=== PATIENT | male | born 1945 | race Caucasian/White ===

== ENCOUNTER 2019-07-18 08:00 | Outpatient (RCR) | payer MEDICARE, OTHER, SELFPAY | END 2019-08-01 13:47 | disposition home or self-care (01) | LOC: PT.CARL 08:00 | PROVIDERS: Visit Provider Orthopaedic Surgery Orthopaedic Trauma | DX: S52.92XS Unspecified fracture of left forearm, sequela (principal); S32.599A Other specified fracture of unspecified pubis, initial encounter for closed fracture | CPT/HCPCS: 97010; 97014; 97033; 97110; 97140; 97163; 97164; G0283 ==

== ENCOUNTER → 2019-07-29 13:26 | Outpatient (CLI) | payer MEDICARE, OTHER, SELFPAY ==
--- NOTE | 2019-07-29 13:30 | MR_ITS ---
PROCEDURE: MR SHOULDER LT WO CON CLINICAL INDICATION: ACUTE PAIN OF LEFT SHOULDER Pain with limited range of motion and popping noise COMPARISON: No exams were available for comparison TECHNIQUE: Routine multiplanar multi echo sequences are performed without gadolinium enhancement. FINDINGS: There is complete tear of the supraspinatus tendon with retraction of the musculotendinous fibers. There is a tear also of the infraspinatus tendon. There are however does appear to be a few intact fibers superiorly and posteriorly. The subscapularis and teres minor tendons appear intact. There is a moderate amount of motion artifact. No obvious labral tear. There fluid in the subdeltoid and sub acromial region as well as the shoulder joint capsule itself anteriorly and posteriorly. Sub coracoid fluid is also noted. The bicipital tendon does appear in place. Hypertrophic changes are present at the acromioclavicular joint. There is bone marrow edema within the posterior aspect of the glenoid. IMPRESSION: 1. Complete tear of the supraspinatus tendon with retraction of the musculotendinous fibers. 2. Partial tear of the infraspinatus tendon. 3. Moderate size shoulder joint effusion with fluid in the subacromial and subdeltoid region and subcoracoid area. 4. Acromioclavicular arthropathy 5. Bone marrow edema in the posterior aspect of the glenoid Dictated by: Brenden Herbert MD 07/31/2019 10:36 Electronically signed by Brenden Herbert MD in [place] 07/31/2019 10:36
== END ==
PROVIDERS: PCP Internal Medicine Adolescent Medicine; Visit Provider Internal Medicine Adolescent Medicine
DX: M25.512 Pain in left shoulder (principal)
CPT/HCPCS: 73221

== ENCOUNTER → 2021-02-15 09:15 | Outpatient (CLI) | payer MEDICARE, OTHER, SELFPAY ==
--- NOTE | 2021-02-15 | CA_ITS ---
APPROVED REPORT Exam: Exercise Treadmill Technologist: Tiffanie Dan, Ht: 6 ft 0 in Wt: 250 lbs BSA: 2.34 m2 HR: 54 bpm BP: 121/52 mmHg Rhythm: Sinus rhythm Medical History Medical History: HTN, Hyperlipidemia Medications: Hydrochlorothiazide,,,,, TAMSULOSIN,,,,, ProSCAR,,,,, Omepazole,,,,, AcYCLOr,,,,, Cardiac Risk Factors: Hyperlipidemia, HTN, FHX of CAD Stress Test Details Test: Raphael HR Resting HR: 58 bpm Max Heart Rate (APMHR): 145.926006 bpm Max HR Achieved: 127 bpm Target HR (85% APMHR): 123.226659 bpm % of APMHR: 87.59 Recovery HR: 82 bpm BP Resting BP: 119/59 mmHg Max BP: 159/90 mmHg Recovery BP: 132.0/60.0 mmHg ECG Resting ECG: Sinus rhythm Clinical Exercise duration: 06:00 min Highest Stage Achieved: Exercise capacity: 7.0 METs Stress ECG Conclusion Pt exercised total of 6:00. METS 7.0. Stopped due to SOB. No chest pain, SOB during peak exercise, resolved in recovery. No ectopy noted. Greater than 1.5mm ST depression. GXT only. Appropriate BP response. Test Summary RECOVERY 04:00 0.0 0.0 76 . . . . REST . . . . . . . Sitting REST . . . . . . . Standing REST 09:09 0.0 0.0 58 . 119/ 59 . . Stage 1 01:00 10.0 1.7 88 . . . . Stage 1 02:00 10.0 1.7 99 . . . . Stage 1 03:00 10.0 1.7 101 . 142/ 61 . . Stage 2 01:00 12.0 2.5 112 . . . . Stage 2 02:00 12.0 2.5 122 . . . . Stage 2 03:00 12.0 2.5 124 . 159/ 90 . Stop exercise at 06:00 RECOVERY 01:00 0.0 0.0 101 . . . . RECOVERY 02:00 0.0 0.0 70 . . . . RECOVERY 03:00 0.0 0.0 76 . . . . RECOVERY 04:00 0.0 0.0 76 . . . . RECOVERY 05:00 0.0 0.0 70 . 118/ 72 . . RECOVERY 05:15 0.0 0.0 65 . 118/ 72 . . Electronically signed by : uLis Saenz, 02/17/2021 21:04:23
== END ==
PROVIDERS: PCP Internal Medicine Adolescent Medicine; Visit Provider Internal Medicine Adolescent Medicine
DX: R06.09 Other forms of dyspnea (principal)
CPT/HCPCS: 93017

== ENCOUNTER → 2021-02-18 10:43 | Outpatient (CLI) | payer MEDICARE, OTHER, SELFPAY | PROVIDERS: Visit Provider Urology | DX: R06.00 Dyspnea, unspecified (principal); I10 Essential (primary) hypertension ==

== ENCOUNTER → 2021-02-19 09:54 | Outpatient (CLI) | payer MEDICARE, OTHER, SELFPAY ==
[2021-02-19 10:34] LABS: Basophils % 0.3 % (0.1-2.0); Eosinophils # 0.1 K/mm3 (0.0-0.4); Eosinophils % 1.9 % (0.1-12.0); Hematocrit 43.5 % (42.0-52.0); Hemoglobin 14.9 g/dL (14.1-18.0); Lymphocytes # 1.8 K/mm3 (0.7-4.5); Lymphocytes % 25.5 % (10-50); Mean Corpuscular HGB Conc 34.3 g/dL (31.8-35.4); Mean Corpuscular Hemoglobin 31.2 pg (27.0-31.2); Mean Platelet Volume 7.8 fl (7.4-10.4); Monocytes # 0.4 K/mm3 (0.1-1.0); Monocytes % 6.2 % (1.7-9.3); Neutrophils # 4.7 K/mm3 (1.8-7.8); Neutrophils % 66.1 % (37.0-80.0); Platelet Count 194 K/mm3 (142-424); Red Blood Count 4.78 M/mm3 (4.60-6.20); Red Cell Distribution Width 13.4 % (11.5-17.5)
[2021-02-19 10:54] LABS: Chloride 100 mmol/L (98-107); Sodium 139 mmol/L (136-145)
[2021-02-19 10:57] LABS: Blood Urea Nitrogen 21 mg/dl (9-20); Calcium 9.6 mg/dl (8.4-10.2); Carbon Dioxide 31 mmol/L (22.0-30.0); Estimated Glomerular Filt Rate 73 ml/min (>60); GFR (African American) 88 ML/MIN (>60); Glucose 104 mg/dl (74-100)
== END ==
PROVIDERS: Visit Provider Urology
DX: Z01.812 Encounter for preprocedural laboratory examination; Z20.822 Contact with and (suspected) exposure to COVID-19; R06.00 Dyspnea, unspecified; R00.1 Bradycardia, unspecified; I10 Essential (primary) hypertension; E78.5 Hyperlipidemia, unspecified; I63.9 Cerebral infarction, unspecified; R94.39 Abnormal result of other cardiovascular function study
CPT/HCPCS: 36415; 80048; 85025; U0003

== ENCOUNTER 2021-02-21 08:55 | Day surgery (SDC) | payer MEDICARE, OTHER, SELFPAY ==
[2021-02-21] VITALS (10 sets, daily range): BP systolic 94–158; BP diastolic 49–87; PULSE 55–71; RESP 2–20; TEMP 36.6; O2SAT 93–100; BMI 33.2
--- NOTE | 2021-02-21 07:08 | IR_ITS ---
APPROVED REPORT Patient Location: Outpatient Production Control Clerk: SUSIE Lobo RT (R) PROCEDURES Left heart catheterization Left ventriculogram Selective coronary angiogram INDICATION Angina pectoris, Abnormal stress test Informed consent was obtained prior to the procedure. COMPLICATIONS NONE Estimated Blood Loss: LESS THAN 10 ML TECHNIQUE One percent lidocaine used to anesthetize the right anterior aspect of the wrist. The right radial artery was accessed via the Seldinger technique. A 6 [place] sheath was placed in the right radial artery. 2.5 mg of verapamil, 800 mcg of nitroglycerin, 1mg Lidocaine and 5000 U Heparin were given through the arterial sheath. The trap catheter was also used to perform left heart catheterization, left ventriculogram and selective coronary angiogram. At the end of the procedure the sheath was removed good hemostasis was achieved using Traclet band, patient was transferred to the postop holding area in stable condition. ANGIOGRAPHIC RESULTS The left main artery Normal The left anterior descending artery Has proximal and mid vessel diffuse 10% luminal irregularities The circumflex artery Nondominant and has diffuse 10% luminal irregularities The right coronary artery Large dominant with diffuse 10% luminal irregularities The DAVIDSON ventriculogram reveals Normal 65% The left ventricular end-diastolic pressure 10 mmHg IMPRESSION Mild diffuse luminal irregularities as described above all of which are nonflow limiting Normal ejection fraction Normal left ventricular end-diastolic pressure PLAN 1. Continue medical management Electronically signed by : Shashi Zelaya MD 02/25/2021 14:53:32
--- NOTE | 2021-02-21 08:59 | CA_ITS ---
APPROVED REPORT EXAM: Comprehensive 2D, Doppler, and color-flow Echocardiogram Tape Machine Tailer: Veronica Zarco, RCS, RVS Ht: 6 ft 2 in Wt: 259lbs BSA: 2.43 BP: 155/76 mmHg Indications: Abn Stress, SOB, ABN EKG Echo Enhancing Agent Comments: Poor acoustic windows wheatley to large chest circumference 2D Dimensions IVSd 1.04 cm LVEF (Visual) 65.70 % PWd 1.27 cm LA Volume 52.60 mL LVDd 4.84 cm LA Volume Index 21.396279 mL/m2 (M/F) 16-34 LVDs 3.09 cm Left Atrium 3.21 cm LVOT 2.07 cm (M/F) 1.5-2.5 M-Mode Dimensions LA Diam 3.91 cm (1.9-4.0) LVDd 5.01 cm (3.5-5.7) Ao Diam 3.66 cm (2.0-3.7) LVDs 3.67 cm (3.5-5.7) EF (Teich) 52.00% EPSs 0.57 cm FS 26.70% EDV (Teich) 118.80 mL TAPSE 2.32 (<1.7) ESV (Teich) 57.00 mL LV Diastology E Decel Time 467.00 (160-240 msec) E/A Ratio 0.82 MED E' 6.50 (< 7 cm/sec) MED A' 12.10 cm/s E'/MED E' Ratio 8.69 (>14) LAT E' 7.60 (<10 cm/sec) LAT A' 11.60 cm/s E/LAT E' Ratio 7.43 (>14) Aortic Valve LVOT Max 125.00 (70-110 cm/s) LVOT VTI 25.35 cm AO Peak GR. 8.90 mmHg Mitral Valve MV A Velocity 69.00 (40-130 cm/s) E/A Ratio 0.82 MV Decel. Time 467.00 (160-240 ms) Pulmonary Valve PV Peak Velocity 121.00 (50-150 cm/s) Tricuspid Valve TR P. Velocity 193.00 cm/s RAP Estimate 10.00 mmHg RVSP 25.00 mmHg Left Ventricle Left atrium is mildly enlarged, left ventricle is normal size, mild concentric left ventricular hypertrophy, visually estimated ejection fraction 55% with no regional wall motion abnormality, grade 1 diastolic dysfunction seen without tissue Doppler evidence of raise left atrial pressure. Right Ventricle Right atrium and right ventricle mildly enlarged with normal contractility. Aortic Valve Aortic valve is minimally thickened and fibrosed, there is no aortic stenosis or aortic insufficiency. Mitral Valve Mitral valve grossly normal, there is trace mitral regurgitation. Tricuspid Valve Tricuspid valve grossly normal, there is trace tricuspid regurgitation. Tricuspid regurgitation jet velocity is inadequate for calculation of the right ventricular systolic pressure. Pulmonic Valve Pulmonic valve is poorly visualized. Great Vessels Aortic root is normal size. Inferior vena cava is normal size with normal inspiratory collapse. Pericardium No significant pericardial effusion noted. Conclusion 1. Mild biatrial abdomen, normal left ventricular size, mild concentric left ventricular hypertrophy, visually estimated ejection fraction 55% with no regional wall motion abnormality, grade 1 diastolic dysfunction seen without tissue Doppler evidence of raise left atrial pressure. 2. Mildly enlarged right ventricle with normal contractility. 3. Trace mitral and tricuspid regurgitation. 4. No significant pericardial effusion noted. Electronically signed by : Dandre Jaimes MD 02/22/2021 13:32:57
== END 2021-02-21 13:41 | disposition home or self-care (01) ==
LOC: CATHLAB 08:58
PROVIDERS: PCP Internal Medicine Adolescent Medicine; Visit Provider Internal Medicine
DX: E78.5 Hyperlipidemia, unspecified (principal); I10 Essential (primary) hypertension; R94.39 Abnormal result of other cardiovascular function study; Z79.899 Other long term (current) drug therapy; I20.8 Other forms of angina pectoris
CPT/HCPCS: 93306; 93458; 99152; C1725; C1769; J1644; Q9967

== ENCOUNTER → 2021-03-04 14:17 | Outpatient (CLI) | payer MEDICARE, OTHER, SELFPAY ==
--- NOTE | 2021-03-04 14:21 | XR_ITS ---
PROCEDURE: XR CHEST 2V CLINICAL HISTORY: dyspnea COMPARISON: CR CXR CHEST(2 VIEWS-NOT PORTABLE) from 08/03/2014 CR CXR CHEST(2 VIEWS-NOT PORTABLE) from 03/27/2015 FINDINGS: The cardiomediastinal silhouette and pulmonary vascularity are within normal limits. The lungs are clear without infiltrates, suspicious nodules, or pleural effusions. No acute bony abnormalities. IMPRESSION: No acute findings. Dictated by: Brenden Herbert MD 03/04/2021 15:58 Brenden Herbert MD in [place] 03/04/2021 15:58
== END ==
PROVIDERS: PCP Internal Medicine Adolescent Medicine; Visit Provider Nurse Practitioner Family
DX: R06.00 Dyspnea, unspecified (principal)
CPT/HCPCS: 71046

== ENCOUNTER → 2021-04-26 10:12 | Outpatient (CLI) | payer MEDICARE, OTHER, SELFPAY ==
[2021-04-26 13:49] LABS: Basophils % 0.7 % (0.1-2.0); Eosinophils # 0.2 K/mm3 (0.0-0.4); Hematocrit 44.2 % (42.0-52.0); Lymphocytes # 1.6 K/mm3 (0.7-4.5); Lymphocytes % 31.7 % (10-50); Mean Corpuscular HGB Conc 33.9 g/dL (31.8-35.4); Mean Corpuscular Hemoglobin 31.6 pg (27.0-31.2); Mean Corpuscular Volume 93.3 fl (80-94); Mean Platelet Volume 9.1 fl (7.4-10.4); Monocytes # 0.6 K/mm3 (0.1-1.0); Monocytes % 12.5 % (1.7-9.3); Neutrophils # 2.6 K/mm3 (1.8-7.8); Neutrophils % 52.1 % (37.0-80.0); Platelet Count 186 K/mm3 (142-424); Red Blood Count 4.74 M/mm3 (4.60-6.20); Red Cell Distribution Width 13.1 % (11.5-17.5)
[2021-04-26 13:53] LABS: Alanine Aminotransferase 85 U/L (12-78); Albumin Level 3.9 g/dl (3.5-5.0); Albumin/Globulin Ratio 1.3 (1.1-1.8); Alkaline Phosphatase 64 U/L (38-126); Anion Gap 12.4 mEq/L (5-15); Aspartate Amino Transferase 79 U/L (17-59); Bilirubin,Total 0.8 mg/dl (0.2-1.3); Blood Urea Nitrogen 15 mg/dl (9-20); Carbon Dioxide 26 mmol/L (22.0-30.0); Chloride 104 mmol/L (98-107); Estimated Glomerular Filt Rate 94 ml/min (>60); GFR (African American) 114 ML/MIN (>60); Glucose 105 mg/dl (74-100); Potassium 4.4 mmoL/L (3.5-5.1); Sodium 138 mmol/L (136-145); Total Protein,Serum 6.9 g/dl (6.3-8.2)
[2021-04-26 14:23] LABS: Thyroid Stimulating Hormone 2.82 uIU/mL (0.465-4.68)
== END ==
PROVIDERS: Visit Provider Internal Medicine Adolescent Medicine
DX: I10 Essential (primary) hypertension (principal)
CPT/HCPCS: 36415; 80053; 84443; 85025

== ENCOUNTER → 2021-05-08 12:44 | Outpatient (CLI) | payer MEDICARE, OTHER, SELFPAY ==
[2021-05-08 13:30] VITALS: PULSE 61; PULSE 64
== END ==
PROVIDERS: PCP Internal Medicine Adolescent Medicine; Visit Provider Internal Medicine Adolescent Medicine
DX: R06.09 Other forms of dyspnea (principal)
CPT/HCPCS: 94060; 94640; 94727; 94729

== ENCOUNTER → 2021-08-06 09:06 | Outpatient (CLI) | payer MEDICARE, OTHER, SELFPAY ==
--- NOTE | 2021-08-06 09:24 | XR_ITS ---
FINAL REPORT CLINICAL HISTORY: left hip pain FINDINGS: 2 views of the left hip with an AP pelvis were obtained. There is no acute fracture or dislocation. There are mild degenerative changes. There are no soft tissue abnormalities. IMPRESSION: Mild degenerative change. Reviewed, Interpreted and Dictated by David Mccartney III, MD Transcribed by Alexandre Ruiz Authenticated by David Mccartney III, MD on 08/06/2021 11:29:[address] [facility]
--- NOTE | 2021-08-06 09:24 | XR_ITS ---
FINAL REPORT CLINICAL HISTORY: right hip pain , pelvis is under left hip FINDINGS: 2 views of the right hip were obtained. There is no acute fracture or dislocation. There are mild degenerative changes. There are no soft tissue abnormalities. IMPRESSION: Mild degenerative change. Reviewed, Interpreted and Dictated by David Mccartney III, MD Transcribed by Alexandre Ruiz Authenticated by David Mccartney III, MD on 08/06/2021 11:30:[address] [facility]
== END ==
PROVIDERS: PCP Internal Medicine Adolescent Medicine; Visit Provider Internal Medicine Adolescent Medicine
DX: M54.50 Low back pain, unspecified (principal); M25.552 Pain in left hip; M25.551 Pain in right hip; G89.29 Other chronic pain
CPT/HCPCS: 73502

== ENCOUNTER → 2021-08-16 10:31 | Outpatient (CLI) | payer MEDICARE, OTHER, SELFPAY ==
--- NOTE | 2021-08-16 10:45 | MR_ITS ---
FINAL REPORT CLINICAL HISTORY: LOW BACK PAIN. hx lumbar surgery 2016. when standing lbp x2-3yrs. no recent injury or trauma. 23ml prohance given. FINDINGS: Multiplanar MR imaging of the lumbar spine was performed without contrast. On the sagittal T2-weighted images, there is abnormal decreased signal throughout the lumbar discs. There is moderate loss of disc height at all levels. There is magnetic artifact of the posterior elements at L4-L5. There is heterogeneous marrow signal probably related to red marrow conversion. The vertebrae are of normal height. The vertebral alignment is normal. No abnormal contrast enhancement. T12-L1: There is no significant canal stenosis or neural foraminal narrowing. L1-2: There is a moderate diffuse disc bulge with a right posterolateral disc protrusion. There is moderate right and mild left neural foraminal narrowing. L2-3: There is a [id number] diffuse disc bulge. There is [id number]-mqiwgylm bilateral neural foraminal narrowing. L3-4: There is a moderate disc bulge with a focal left paracentral disc protrusion. There is moderate compromise on the left lateral recess. There is moderate to high-grade left neural foraminal narrowing. L4-5: There is a moderate diffuse disc bulge with facet hypertrophy. There is moderate to high-grade bilateral neural foraminal narrowing. L5-S1: There is a diffuse disc bulge with endplate hypertrophy eccentric to the right. There is high-grade right neural foraminal narrowing. IMPRESSION: Neural foraminal compromise most evident on the left at L3-L4 and on the right at L5-S1. Please correlate with any radicular symptoms. Reviewed, Interpreted and Dictated by Frederick Yoder MD Transcribed by Alexandre Ruiz Authenticated by Frederick Yoder MD on 08/16/2021 01:19:37 PM [facility]
[2021-08-16 10:53] LABS: Blood Urea Nitrogen 24 mg/dl (9-20); Estimated Glomerular Filt Rate 94 ml/min (>60); GFR (African American) 114 ML/MIN (>60)
== END ==
PROVIDERS: PCP Internal Medicine Adolescent Medicine; Visit Provider Internal Medicine Adolescent Medicine
DX: M54.50 Low back pain, unspecified (principal)
CPT/HCPCS: 36415; 72158; 76376; 82565; 84520; A9576

== ENCOUNTER 2021-08-21 09:00 | Outpatient (RCR) | payer MEDICARE, OTHER, SELFPAY ==
--- NOTE | 2021-07-10 10:26 | HMH.PTOPEV ---
PT Outpatient Evaluation Rehab PT Outpatient Evaluation Start: 07/10/21 09:00 Freq: Status: Active Protocol: Document 07/10/21 09:00 JASPAL (Rec: 07/10/21 10:26 PDESEROUX [id number]) Electronically Signed By Tyler Kohler, PT 07/10/21 09:00 Outpatient Therapy Subjective History Subjective History Pt. is a 75 year old male who presents to Outpatient Physical Therapy w/ c/o subacute on chronic and activity dependent B/L lumbar and hip(R>L) P! of traumatic onset 1.5 months ago. Pt. reports feeling a pop in his RLE buttock 1.5 months ago, and has been fearful to put full weightbearing through his RLE ever since secondary to fear of giving out. However, pt. reports c/o lumbar pain is chronic. Pt. reports prolonged standing exacerbates his symptoms, but states having symptom complete relief after 30 seconds of sitting. Pt. reports having a history of LLE Sciatica, but states current symptoms will refer just to his buttock(R>L). Recent diagnostic imaging negative per pt. report. Pt. denies having injections for current pathology. Pt. reports he's been seeing a Chiropractor for current symptoms that include pelvic realignment and icing that doesn't seem to help much. Current medications include Prilosec and Tamsulosin. PMH includes S/P Laminectomy L4/L5 , Enlarged Prostate, Borderline Hypertension, Hyperlipidemia, Cholecystectomy, S/P LLE knee ATS, and S/P LUE humerus and ulna surgical reconstruction. Chief Complaint Pain,Stiff,Gives out/Unstable, Paresthesia,Weakness Symptom Type Ache,Dull,Shooting Symptoms Relieved By Rest/Positioning Symptoms Aggravated By
== END 2021-09-18 11:31 | disposition home or self-care (01) ==
LOC: PT.CARL 09:00
PROVIDERS: PCP Internal Medicine Adolescent Medicine; Visit Provider Internal Medicine Adolescent Medicine
DX: M62.9 Disorder of muscle, unspecified (principal)
CPT/HCPCS: 97010; 97014; 97110; 97140; 97163; 97164; G0283

== ENCOUNTER → 2021-12-25 21:21 | Outpatient (CLI) | payer MEDICARE, OTHER, SELFPAY ==
[2021-12-25 23:52] LABS: Influenza A, PCR Not Detected (NotDetected); Influenza B, PCR Not Detected (NotDetected)
[2021-12-26 00:12] LABS: Coronavirus 19, PCR Detected (NotDetected)
== END ==
PROVIDERS: PCP Internal Medicine Adolescent Medicine; Visit Provider Emergency Medicine
DX: Z20.822 Contact with and (suspected) exposure to COVID-19 (principal); U07.1 COVID-19
CPT/HCPCS: C9803; U0003; U0005

== ENCOUNTER 2021-12-26 10:07 | Emergency (ER) | payer MEDICARE, OTHER, SELFPAY ==
--- NOTE | 2021-12-26 10:09 | ECG_ITS ---
APPROVED REPORT Exam: Resting ECG HR:74 bpm ECG Measurements Heart Rate 74 AXES NH 215 P 57 QRSd 89 QRS 59 QT 355 T 60 QTc 383 Conclusion SINUS RHYTHM WITH FIRST DEGREE AV BLOCK NONSPECIFIC ST & T-WAVE ABNORMALITY ABNORMAL ECG UNCONFIRMED REPORT Electronically signed by : Luis Saenz MD 12/26/2021 21:17:20
[2021-12-26 10:15] VITALS: BP 143/67; PULSE 77; RESP 20; TEMP 36.8; O2SAT 96; BMI 32.1
--- NOTE | 2021-12-26 10:15 | XR_ITS ---
FINAL REPORT CLINICAL HISTORY: chest pain, covid + today COMPARISON: March 04, 2021 FINDINGS: The heart size is normal. The mediastinum is normal. There is no focal infiltrate or edema. There are no pleural effusions. There is no pneumothorax. There is no osseous abnormality. IMPRESSION: No acute cardiopulmonary process Reviewed, Interpreted and Dictated by David Mccartney III, MD Transcribed by Alexandre Ruiz Authenticated and . [facility]
--- NOTE | 2021-12-26 10:21 | PC.NURSE ---
LULU UGARTE at
--- NOTE | 2021-12-26 10:28 | PC.NURSE ---
Notified radiology of portable chest xray
--- NOTE | 2021-12-26 10:30 | HMH.EDGENADL ---
ED Disposition Clinical Impression: Chest pain Disposition: Home, Self-Care Condition on Discharge: Fair Prescriptions: Benzonatate [Benzonatate 100mg cap] 100 mg PO TID PRN 5 Days #15 cap PRN Reason: Cough Transmission Status: Pending to [facility] Referrals: Karlos Toussaint MD [Primary Care Provider] - - Critical Care Critical Care Time: No Attestation: On 12/26/21, the high probability of a clinically significant, sudden or life threatening deterioration of the following system(s) required my full and direct attention, intervention and personal management. The time I documented below is in addition to time spent performing reported procedures but includes the following listed in this critical care notation. Medical Decision Making - [place] Inquiry Pt receiving controlled substance: No Vital Signs: 12/26/21 10:15 12/26/21 10:37 12/26/21 10:47 Temperature 98.2 F Temperature Source Oral Pulse Rate 70 70 Pulse Rate [Left Radial] 77 Respiratory Rate 20 23 Blood Pressure 149/77 H 148/69 H Blood Pressure [Right Arm] 143/67 H Blood Pressure Mean 90 81 Blood Pressure Mean [Right Arm] 92 02 Sat by Pulse Oximetry 96 96 95 Oxygen Delivery Method Room Air 12/26/21 10:57 Temperature Temperature Source Pulse Rate 69 Pulse Rate [Left Radial] Respiratory Rate Blood Pressure 148/71 H Blood Pressure [Right Arm] Blood Pressure Mean 89 Blood Pressure Mean [Right Arm] 02 Sat by Pulse Oximetry 95 Oxygen Delivery Method - Lab Data Lab Results 12/26/21 10:30: WBC 7.4, RBC 4.22 L, Hgb 13.4 L, Hct 39.9 L, MCV 94.6 H, MCH 31.8 H, MCHC 33.6, RDW 13.7, Plt Count 180, MPV 8.1, Neut % (Auto) 82.3 H, Lymph % (Auto) 7.5 L, Bath % (Auto) 8.5, Eos % (Auto) 1.2, Baso % (Auto) 0.6, Neut # (Auto) 6.1, Lymph # (Auto) 0.6 L, Bath # (Auto) 0.6, Eos # (Auto) 0.1, Baso # (Auto) 0.0 12/26/21 10:30: Sodium 138, Potassium 3.8, Chloride 104, Carbon Dioxide 25, Anion Gap 12.8, BUN 19, Creatinine 0.80, Estimated Creat Clear 101, Estimated GFR 94, Est GFR ( Amer) 114, Glucose 124 H, Calcium 8.8, Total Bilirubin 0.4, AST 41, ALT 42, Alkaline Phosphatase 62, Troponin I < 0.01, Total Protein 6.9, Albumin 3.9, Globulin 3.0, Albumin/Globulin Ratio 1.3 12/26/21 10:30: D-Dimer 0.66 H Result diagrams: 12/26/21 10:30 12/26/21 10:30 Orders (Tests/Meds): ED MEDICATIONS Discontinued Medications Generic Name Dose Route Start Last Admin Trade Name Freq PRN Reason Stop Dose Admin Acetaminophen 1,000 mg 12/26/21 10:36 12/26/21 11:08 Acetaminophen 500mg Tab PO 12/26/21 10:37 1,000 mg ONCE ONE Administration Aspirin 325 mg 12/26/21 10:36 12/26/21 11:08 Aspirin 325mg Tablet PO 12/26/21 10:37 243 mg ONCE ONE Administration ORDERS Category Date Time Status Troponin I Q3H Lab 12/26/21 13:30 Ordered Troponin I Q3H Lab 12/26/21 16:30 Ordered Medical Decision Narrative: DDX includes but not limited pneumonia, pneumothorax, ACS, PE. HDS, NAD, on room air, appears comfortable sitting in bed. Afebrile. Wells PE score 3. Will obtain labs and imaging including cbc, cmp, troponin, d dimer, cxr. pt given tylenol and aspirin. ekg show nsr with first degree block, no acute stemi. labs not acutely actionable. d dimer 0.66 but age adjusted levels vte less likely acutely. cxr without acute findings. on reassessment, remains hds, on room air, nad. given rx for benzonatate prn cough. given strict ed return precautions. advised to f/u with pcp within 1 week. General Adult HPI - General Chief complaint: Shortness of Breath/Dyspnea Stated complaint: CP Time Seen by Provider: 12/26/21 10:15 Mode of Arrival: Ambulatory Limitations: No Limitations Description of Symptoms (Recalled from ER Triage Doc. by RN): pt to ed c/o chest discomfort, shortness of breath and a non-productive cough. pt tested covid+ yesterday. pt states he was being seen in his pcp office and was sent to ed for evalua
[2021-12-26 10:37] VITALS: BP 149/77; PULSE 70; RESP 23; O2SAT 96
[2021-12-26 10:41] LABS: Basophils % 0.6 % (0.1-2.0); Eosinophils # 0.1 K/mm3 (0.0-0.4); Eosinophils % 1.2 % (0.1-12.0); Hematocrit 39.9 % (42.0-52.0); Hemoglobin 13.4 g/dL (14.1-18.0); Lymphocytes # 0.6 K/mm3 (0.7-4.5); Lymphocytes % 7.5 % (10-50); Mean Corpuscular HGB Conc 33.6 g/dL (31.8-35.4); Mean Corpuscular Hemoglobin 31.8 pg (27.0-31.2); Mean Corpuscular Volume 94.6 fl (80-94); Mean Platelet Volume 8.1 fl (7.4-10.4); Monocytes # 0.6 K/mm3 (0.1-1.0); Monocytes % 8.5 % (1.7-9.3); Neutrophils # 6.1 K/mm3 (1.8-7.8); Neutrophils % 82.3 % (37.0-80.0); Platelet Count 180 K/mm3 (142-424); Red Blood Count 4.22 M/mm3 (4.60-6.20); Red Cell Distribution Width 13.7 % (11.5-17.5); White Blood Count 7.4 K/mm3 (4.8-10.8)
[2021-12-26 10:45] LABS: Alanine Aminotransferase 42 U/L (12-78); Albumin Level 3.9 g/dl (3.5-5.0); Albumin/Globulin Ratio 1.3 (1.1-1.8); Alkaline Phosphatase 62 U/L (38-126); Anion Gap 12.8 mEq/L (5-15); Aspartate Amino Transferase 41 U/L (17-59); Bilirubin,Total 0.4 mg/dl (0.2-1.3); Blood Urea Nitrogen 19 mg/dl (9-20); Calcium 8.8 mg/dl (8.4-10.2); Carbon Dioxide 25 mmol/L (22.0-30.0); Chloride 104 mmol/L (98-107); Creatinine Clearance Estimated 101 mL/min (50-200); Estimated Glomerular Filt Rate 94 ml/min (>60); GFR (African American) 114 ML/MIN (>60); Glucose 124 mg/dl (74-100); Potassium 3.8 mmoL/L (3.5-5.1); Sodium 138 mmol/L (136-145); Total Protein,Serum 6.9 g/dl (6.3-8.2)
[2021-12-26 10:47] VITALS: BP 148/69; PULSE 70; O2SAT 95
[2021-12-26 10:50] LABS: D-Dimer 0.66 ug/mL (0.0-0.5)
[2021-12-26 10:57] VITALS: BP 148/71; PULSE 69; O2SAT 95
--- NOTE | 2021-12-26 11:06 | PC.NURSE ---
DAO Eason at BS
[2021-12-26 11:09] LABS: Troponin I < 0.01 ng/ml (0.00-0.034)
--- NOTE | 2021-12-26 11:43 | PC.NURSE ---
Dr. Cole at speaking with patient regarding POC
[2021-12-26 11:59] VITALS: BP 140/70; PULSE 70; RESP 18; TEMP 36.8; O2SAT 96
== END 2021-12-26 12:00 | disposition home or self-care (01) ==
PROVIDERS: Emergency Provider Student in an Organized Health Care Education/Training Program; PCP Internal Medicine Adolescent Medicine
DX: R07.2 Precordial pain (principal); R94.31 Abnormal electrocardiogram [ECG] [EKG]; R06.02 Shortness of breath; R00.1 Bradycardia, unspecified; I10 Essential (primary) hypertension; I25.10 Atherosclerotic heart disease of native coronary artery without angina pectoris; I44.0 Atrioventricular block, first degree; K21.9 Gastro-esophageal reflux disease without esophagitis; E78.5 Hyperlipidemia, unspecified; Z80.9 Family history of malignant neoplasm, unspecified; Z79.82 Long term (current) use of aspirin; Z79.899 Other long term (current) drug therapy
CPT/HCPCS: 71045; 80053; 84484; 85025; 85378; 93005; 99284

== ENCOUNTER → 2022-01-02 12:36 | Outpatient (CLI) | payer MEDICARE, OTHER, SELFPAY ==
[2022-01-02 13:19] LABS: Basophils % 0.6 % (0.1-2.0); Eosinophils # 0.2 K/mm3 (0.0-0.4); Eosinophils % 2.7 % (0.1-12.0); Hematocrit 41.6 % (42.0-52.0); Lymphocytes # 1.3 K/mm3 (0.7-4.5); Lymphocytes % 18.2 % (10-50); Mean Corpuscular HGB Conc 33.6 g/dL (31.8-35.4); Mean Corpuscular Hemoglobin 31.3 pg (27.0-31.2); Mean Corpuscular Volume 93.2 fl (80-94); Mean Platelet Volume 8.4 fl (7.4-10.4); Monocytes # 0.6 K/mm3 (0.1-1.0); Monocytes % 8.7 % (1.7-9.3); Neutrophils # 5.1 K/mm3 (1.8-7.8); Neutrophils % 69.8 % (37.0-80.0); Platelet Count 249 K/mm3 (142-424); Red Blood Count 4.47 M/mm3 (4.60-6.20); Red Cell Distribution Width 13.2 % (11.5-17.5); White Blood Count 7.3 K/mm3 (4.8-10.8)
[2022-01-02 13:44] LABS: Chloride 103 mmol/L (98-107); Potassium 4.4 mmoL/L (3.5-5.1); Sodium 135 mmol/L (136-145)
[2022-01-02 13:46] LABS: Blood Urea Nitrogen 20 mg/dl (9-20); Estimated Glomerular Filt Rate 82 ml/min (>60); GFR (African American) 99 ML/MIN (>60)
[2022-01-02 13:47] LABS: Alanine Aminotransferase 94 U/L (12-78); Albumin Level 4.1 g/dl (3.5-5.0); Albumin/Globulin Ratio 1.5 (1.1-1.8); Alkaline Phosphatase 61 U/L (38-126); Anion Gap 9.4 mEq/L (5-15); Aspartate Amino Transferase 70 U/L (17-59); Bilirubin,Total 0.7 mg/dl (0.2-1.3); Calcium 9.2 mg/dl (8.4-10.2); Carbon Dioxide 27 mmol/L (22.0-30.0); Globulin 2.7 g/dL (1.3-3.2); Glucose 116 mg/dl (74-100); Magnesium 1.8 mg/dl (1.6-2.3); Total Protein,Serum 6.8 g/dl (6.3-8.2)
== END ==
PROVIDERS: PCP Internal Medicine Adolescent Medicine; Visit Provider Internal Medicine Adolescent Medicine
DX: R53.1 Weakness (principal)
CPT/HCPCS: 36415; 80053; 83735; 85025

== ENCOUNTER → 2022-01-28 13:45 | Outpatient (CLI) | payer MEDICARE, OTHER, SELFPAY ==
--- NOTE | 2022-01-28 13:52 | CT_ITS ---
FINAL REPORT TECHNIQUE: After the administration of intravenous contrast, axial images through the chest were performed by computed tomography.This study was performed with techniques to keep radiation doses as low as reasonably achievable, (ALARA). Individualized dose reduction techniques using automated exposure control or adjustment of mA and/or kV according to the patient''s size were employed. CLINICAL HISTORY: DYSPNEA,POST COVID 05 january 2022 FINDINGS: The mediastinal vasculature is adequately opacified. There is densely calcified right paratracheal lymph nodes. The heart size is normal. There is no pericardial or pleural effusion. Limited images of the upper abdomen are unremarkable. There is evidence of old granulomatous disease. No suspicious infiltrate or nodule identified. IMPRESSION: No acute process. Reviewed, Interpreted and Dictated by Frederick Yoder MD Transcribed by Ansley Duran Authenticated and [facility]
== END ==
PROVIDERS: PCP Internal Medicine Adolescent Medicine; Visit Provider Internal Medicine Adolescent Medicine
DX: R06.09 Other forms of dyspnea (principal); U09.9 Post COVID-19 condition, unspecified
CPT/HCPCS: 71260; Q9967

== ENCOUNTER → 2022-02-27 15:23 | Outpatient (CLI) | payer MEDICARE, OTHER, SELFPAY ==
[2022-02-27 16:20] LABS: Basophils % 0.6 % (0.1-2.0); Eosinophils # 0.3 K/mm3 (0.0-0.4); Eosinophils % 3.8 % (0.1-12.0); Hematocrit 42.6 % (42.0-52.0); Hemoglobin 13.3 g/dL (14.1-18.0); Lymphocytes # 1.5 K/mm3 (0.7-4.5); Lymphocytes % 21.7 % (10-50); Mean Corpuscular HGB Conc 31.3 g/dL (31.8-35.4); Mean Corpuscular Hemoglobin 31.3 pg (27.0-31.2); Mean Platelet Volume 9.2 fl (7.4-10.4); Monocytes # 0.7 K/mm3 (0.1-1.0); Monocytes % 9.2 % (1.7-9.3); Neutrophils # 4.6 K/mm3 (1.8-7.8); Neutrophils % 64.7 % (37.0-80.0); Platelet Count 215 K/mm3 (142-424); Red Blood Count 4.26 M/mm3 (4.60-6.20); Red Cell Distribution Width 13.5 % (11.5-17.5); White Blood Count 7.1 K/mm3 (4.8-10.8)
[2022-02-27 16:30] LABS: D-Dimer 0.87 ug/mL (0.0-0.5)
[2022-03-06 03:36] LABS: D001-IgE D pteronyssinus 0.58 kU/L (Class II); D002-IgE D farinae 0.58 kU/L (Class II); E001-IgE Cat Dander <0.10 kU/L (Class 0); E005-IgE Dog Dander <0.10 kU/L (Class 0); E072-IgE Mouse Urine <0.10 kU/L (Class 0); G002-IgE Bermuda Grass <0.10 kU/L (Class 0); G006-IgE Timothy Grass <0.10 kU/L (Class 0); I006-IgE Cockroach, German 0.17 kU/L (Class 0/I); Immunoglobulin E, Total 46 IU/mL (6-495); M001-IgE Penicillium chrysogen <0.10 kU/L (Class 0); M002-IgE Cladosporium herbarum <0.10 kU/L (Class 0); M003-IgE Aspergillus fumigatus <0.10 kU/L (Class 0); M006-IgE Alternaria alternata <0.10 kU/L (Class 0); T001-IgE Maple/Box Elder <0.10 kU/L (Class 0); T003-IgE Common Silver Birch <0.10 kU/L (Class 0); T006-IgE Cedar, Mountain <0.10 kU/L (Class 0); T007-IgE Oak, White <0.10 kU/L (Class 0); T008-IgE Elm, American <0.10 kU/L (Class 0); T010-IgE Walnut <0.10 kU/L (Class 0); T011-IgE Maple Leaf Sycamore <0.10 kU/L (Class 0); T014-IgE Cottonwood <0.10 kU/L (Class 0); T015-IgE Ash, White <0.10 kU/L (Class 0); T022-IgE Pecan, Hickory <0.10 kU/L (Class 0); T070-IgE White Mulberry <0.10 kU/L (Class 0); W001-IgE Ragweed, Short <0.10 kU/L (Class 0); W011-IgE Thistle, Russian <0.10 kU/L (Class 0); W014-IgE Pigweed, Common <0.10 kU/L (Class 0); W018-IgE Sheep Sorrel <0.10 kU/L (Class 0)
== END ==
PROVIDERS: PCP Internal Medicine Adolescent Medicine; Visit Provider Internal Medicine Pulmonary Disease
DX: J45.909 Unspecified asthma, uncomplicated (principal); R06.09 Other forms of dyspnea
CPT/HCPCS: 36415; 82785; 85025; 85378; 86003

== ENCOUNTER → 2022-03-06 13:25 | Outpatient (CLI) | payer MEDICARE, OTHER, SELFPAY ==
--- NOTE | 2022-03-06 13:26 | CA_ITS ---
FINAL REPORT CLINICAL HISTORY: elevated dimer, HTN, edema. FINDINGS: Color Doppler, duplex Doppler and compression sonography of the bilateral lower extremities was performed. There is no evidence of deep venous thrombosis from the level of the groin to the calf. The deep veins are patent and compressible. IMPRESSION: No evidence of deep venous thrombosis bilateral lower extremities. Reviewed, Interpreted and Dictated by David Mccartney III, MD Transcribed by Alexandre Ruiz Authenticated and [facility]
== END ==
PROVIDERS: PCP Internal Medicine Adolescent Medicine; Visit Provider Internal Medicine Pulmonary Disease
DX: R07.9 Chest pain, unspecified (principal); R06.09 Other forms of dyspnea
CPT/HCPCS: 93970; 94762

== ENCOUNTER → 2022-03-26 07:58 | Outpatient (CLI) | payer MEDICARE, OTHER, SELFPAY | PROVIDERS: PCP Internal Medicine Adolescent Medicine; Visit Provider Internal Medicine Pulmonary Disease | DX: R06.09 Other forms of dyspnea (principal) | CPT/HCPCS: 94060; 94618; 94726; 94729 ==

== ENCOUNTER → 2022-05-26 07:46 | Outpatient (CLI) | payer MEDICARE, OTHER, SELFPAY ==
--- NOTE | 2022-05-26 07:47 | FL_ITS ---
FINAL REPORT CLINICAL HISTORY: soa time-0.24 FINDINGS: SNIFF TEST HISTORY: Shortness of breath. FINDINGS: A sniff test was performed. No paradoxical movement was noted with either hemidiaphragm. FLUOROSCOPY TIME: 24 seconds IMPRESSION: Unremarkable sniff test. Films reviewed , interpreted and dictated by Dr. Yoder. Transcribed by Monico Casillas PA-C. Reviewed, Interpreted and Dictated by Frederick Yoder MD Transcribed by LINDA Randle Authenticated and . [facility]
--- NOTE | 2022-05-26 07:47 | NM_ITS ---
FINAL REPORT CLINICAL HISTORY: sob 9:30AM 35.6 MCI TC DTPA 10:00AM 8.75 MCI TC MAA FINDINGS: NUCLEAR MEDICINE VENTILATION AND PERFUSION IMAGING TECHNIQUE: V/Q scan is performed utilizing 35.6 technetium 99 M DTPA aerosol and IV administration of 8.75 technetium 99 M MAA. Images were obtained in AP, PA, lateral, and oblique projections. FINDINGS There is no evidence of segmental or subsegmental mismatch perfusion defects. IMPRESSION: Low probability for pulmonary embolus. Reviewed, Interpreted and Dictated by Frederick Yoder MD Transcribed by Alexandre Ruiz Authenticated and [facility]
== END ==
PROVIDERS: PCP Internal Medicine Adolescent Medicine; Visit Provider Internal Medicine Pulmonary Disease
DX: J98.6 Disorders of diaphragm (principal); R06.09 Other forms of dyspnea
CPT/HCPCS: 76000; 78582; A9540; A9567

== ENCOUNTER → 2022-09-15 23:40 | Outpatient (CLI) | payer MEDICARE, OTHER, SELFPAY ==
[2022-09-15 17:07] LABS: Alanine Aminotransferase 36 U/L (12-78); Albumin Level 4.3 g/dl (3.5-5.0); Albumin/Globulin Ratio 1.5 (1.1-1.8); Alkaline Phosphatase 71 U/L (38-126); Anion Gap 8.5 mEq/L (5-15); Aspartate Amino Transferase 42 U/L (17-59); Blood Urea Nitrogen 18 mg/dl (9-20); Carbon Dioxide 27 mmol/L (22.0-30.0); Chloride 106 mmol/L (98-107); Cholesterol 204 mg/dl (140-200); Estimated Glomerular Filt Rate 82 ml/min (>60); GFR (African American) 99 ML/MIN (>60); Globulin 2.9 g/dL (1.3-3.2); Glucose 95 mg/dl (74-100); HDL Cholesterol 29 mg/dl (40-60); Potassium 4.5 mmoL/L (3.5-5.1); Sodium 137 mmol/L (136-145); Total Protein,Serum 7.2 g/dl (6.3-8.2); Triglycerides 131 mg/dl (30-150); VLDL Cholesterol 26 mg/dL (0-40)
[2022-09-15 17:10] LABS: Basophils # 0.1 K/mm3 (0-0.2); Basophils % 0.8 % (0.1-2.0); Eosinophils # 0.2 K/mm3 (0.0-0.4); Eosinophils % 3.4 % (0.1-12.0); Hematocrit 43.3 % (42.0-52.0); Hemoglobin 14.3 g/dL (14.1-18.0); Lymphocytes # 1.7 K/mm3 (0.7-4.5); Lymphocytes % 27.4 % (10-50); Mean Corpuscular Volume 93.7 fl (80-94); Mean Platelet Volume 10.5 fl (7.4-10.4); Monocytes # 0.5 K/mm3 (0.1-1.0); Monocytes % 8.4 % (1.7-9.3); Neutrophils # 3.7 K/mm3 (1.8-7.8); Platelet Count 258 K/mm3 (142-424); Red Blood Count 4.62 M/mm3 (4.60-6.20); Red Cell Distribution Width 13.1 % (11.5-17.5); White Blood Count 6.1 K/mm3 (4.8-10.8)
[2022-09-15 17:18] LABS: Direct LDL Cholesterol 125.99 mg/dL (100-129)
[2022-09-15 17:37] LABS: Thyroid Stimulating Hormone 2.21 uIU/mL (0.465-4.68)
== END ==
PROVIDERS: PCP Family Medicine; Visit Provider Family Medicine
DX: I10 Essential (primary) hypertension (principal); Z00.00 Encounter for general adult medical examination without abnormal findings; R06.09 Other forms of dyspnea
CPT/HCPCS: 80053; 80061; 84443; 85025

== ENCOUNTER → 2023-05-22 10:05 | Outpatient (CLI) | payer MEDICARE, OTHER, SELFPAY ==
[2023-05-22 19:19] LABS: Basophils % 0.3 % (0.1-2.0); Eosinophils # 0.2 K/mm3 (0.0-0.4); Eosinophils % 2.3 % (0.1-12.0); Hematocrit 43.6 % (42.0-52.0); Hemoglobin 14.7 g/dL (14.1-18.0); Lymphocytes # 1.1 K/mm3 (0.7-4.5); Mean Corpuscular HGB Conc 33.7 g/dL (31.8-35.4); Mean Corpuscular Hemoglobin 32.4 pg (27.0-31.2); Mean Corpuscular Volume 96.3 fl (80-94); Mean Platelet Volume 11.3 fl (7.4-10.4); Monocytes # 0.7 K/mm3 (0.1-1.0); Monocytes % 7.4 % (1.7-9.3); Neutrophils # 6.9 K/mm3 (1.8-7.8); Platelet Count 199 K/mm3 (142-424); Red Blood Count 4.53 M/mm3 (4.60-6.20); Red Cell Distribution Width 13.7 % (11.5-17.5); White Blood Count 8.8 K/mm3 (4.8-10.8)
[2023-05-22 19:29] LABS: Alanine Aminotransferase 38 U/L (12-78); Albumin Level 4.2 g/dl (3.5-5.0); Albumin/Globulin Ratio 1.4 (1.1-1.8); Alkaline Phosphatase 57 U/L (38-126); Anion Gap 12.5 mEq/L (5-15); Aspartate Amino Transferase 45 U/L (17-59); Blood Urea Nitrogen 22 mg/dl (9-20); Calcium 9.2 mg/dl (8.4-10.2); Carbon Dioxide 27 mmol/L (22.0-30.0); Chloride 104 mmol/L (98-107); Chol/HDL Ratio 6.5 (1-3.5); Cholesterol 194 mg/dl (140-200); Estimated Glomerular Filt Rate 82 ml/min (>60); GFR (African American) 99 ML/MIN (>60); Globulin 2.9 g/dL (1.3-3.2); Glucose 102 mg/dl (74-100); HDL Cholesterol 30 mg/dl (40-60); Potassium 4.5 mmoL/L (3.5-5.1); Sodium 139 mmol/L (136-145); Total Protein,Serum 7.1 g/dl (6.3-8.2); Triglycerides 95 mg/dl (30-150); VLDL Cholesterol 19 mg/dL (0-40)
[2023-05-22 19:40] LABS: Direct LDL Cholesterol 125.79 mg/dL (100-129)
[2023-05-22 19:58] LABS: Thyroid Stimulating Hormone 1.79 uIU/mL (0.465-4.68)
== END ==
PROVIDERS: PCP Family Medicine; Visit Provider Nurse Practitioner Family
DX: E78.5 Hyperlipidemia, unspecified (principal); I10 Essential (primary) hypertension
CPT/HCPCS: 80053; 80061; 84443; 85025

== ENCOUNTER → 2023-06-02 09:56 | Outpatient (CLI) | payer MEDICARE, OTHER, SELFPAY ==
[2023-06-02 10:35] VITALS: PULSE 54; PULSE 55
== END ==
PROVIDERS: PCP Family Medicine; Visit Provider Internal Medicine Pulmonary Disease
DX: R06.09 Other forms of dyspnea (principal)
CPT/HCPCS: 94060; 94618; 94640; 94727; 94729

== ENCOUNTER 2023-12-18 13:51 | Emergency (ER) | payer MEDICARE, OTHER, SELFPAY ==
[2023-12-18 13:52] VITALS: BP 119/61; PULSE 65; RESP 16; TEMP 36.8; O2SAT 97; BMI 29.8
--- NOTE | 2023-12-18 14:10 | ED_ITS ---
Discharge Plan Disposition Patient Disposition: Still a Patient Condition: Fair Prescriptions Prescriptions: No Action acyclovir 800 mg tablet 800 mg PO 5XD Qty: 60 2RF Rx Instructions: space evenly during waking hours omeprazole 40 mg capsule,delayed release(DR/EC) 40 mg PO DAILY 90 Days Qty: 90 1RF clobetasol 0.05 % ointment 1 applic topical BID 30 Days Qty: 30 2RF tamsulosin 0.4 mg capsule 0.4 mg PO DAILY 90 Days Qty: 90 0RF finasteride 5 mg tablet 5 mg PO DAILY 90 Days Qty: 90 1RF tizanidine [Zanaflex] 6 mg capsule 6 mg PO BID PRN (Reason: muscle spasticity) Qty: 30 2RF aspirin 81 MG tablet,delayed release (DR/EC) 81 mg PO DAILY Referrals Follow up/Referrals: Jasper Kaplan MD [Primary Care Provider] - See instructions Discharge ED Provider: Omari Davis [facility] [place] General Stated complaint: AO 12/18/23 @ 13:25, cut right finger Time Seen by Provider: 12/18/23 14:10 History of Present Illness Provider Complaint: He states that 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 He has a laceration on the tip of his right index finger that involves his nailbed. He does not think that his tetanus immunization is up to date. Related Data Home Medications Medication Instructions Recorded Confirmed aspirin 81 mg tablet,delayed 81 mg PO DAILY Heart disease 02/21/21 10/07/23 release Previous Rx's Medication Instructions Recorded omeprazole 40 mg capsule,delayed 40 mg PO DAILY stomach 90 days #90 06/10/23 release caps clobetasol 0.05 % topical ointment 1 applic topical BID 30 days #30 08/19/23 grams acyclovir 800 mg tablet 800 mg PO 5XD #60 tabs 10/07/23 tamsulosin 0.4 mg capsule 0.4 mg PO DAILY prostate 90 days 10/20/23 #90 caps finasteride 5 mg tablet 5 mg PO DAILY blood pressure 90 11/02/23 days #90 tabs tizanidine 6 mg capsule (Zanaflex) 6 mg PO BID PRN muscle spasticity 11/11/23 #30 caps Allergies Allergy/AdvReac Type Severity Reaction Status Date / Time [id number] Reductase AdvReac Mild Joint Pain Verified 10/07/23 10:37 [facility] Disclaimer: The information contained in this section may have been updated after the patient was seen, as this information can be updated by other users. Medical History Mild persistent asthma Allergic rhinitis Dyspnea on exertion Diffusion capacity of lung (dl), decreased Asthma Restrictive lung disease Allergic rhinitis, unspecified Family history of asthma Smoking history Dyspnea on exertion CAD (coronary artery disease) HLD (hyperlipidemia) HTN (hypertension) Dyspnea Sinus bradycardia Abnormal stress ECG Surgical History History of lumbar surgery History of bilateral inguinal hernia repair History of cholecystectomy History of surgery on arm Family History Mother Hypertension Cancer Father Hypertension Social History Smoking Status: Never smoker second hand exposure: No alcohol intake: never substance use type: denies use current occupational status: retired Travel in the last 8 weeks: None household members: spouse housing: house current occupational exposures/hazards: No caffeine: Yes ROS Obtained: Yes All systems reviewed & no additional complaints except as documented Constitutional Constitutional: Denies chills and Denies fever(s) Eyes Eyes: Denies eye discharge ENT Ears, Nose, Mouth, and Throat: Denies dizziness, Denies otalgia and Denies sore throat Cardiovascular Cardiovascular: Denies chest pain Respiratory Respiratory: Denies shortness of breath, Denies chest congestion, Denies cough, Denies stridor and Denies wheezing Gastrointestinal Gastrointestingal: Denies nausea or vomiting Musculoskeletal Musculoskeletal: Reports as per HPI Integumentary/Breasts Skin/Breast: Reports as per HPI Neurologic Neurologic: Denies dizziness and Denies paresthesias Allergic/Immunologic Allergic/Immunologic: Denies wheezing Physical Exam General General appearance: alert and in no apparent distress Head Head exam: atraumatic, normocephalic and normal inspection Eye Eye exam: Present normal appearance, PERRL and EOMI ENT ENT exam: Present normal exam, normal oropharynx, mucous membranes moist, TM's normal bilaterally and normal external ear exam Neck Neck exam: Present normal inspection, full ROM and trachea midline; Absent meningismus or lymphadenopathy Chest Chest inspection: Present normal inspection and symmetric chest wall rise; Absent tenderness Respiratory Respiratory exam: Present normal lung sounds bilaterally; Absent respiratory distress Cardiovascular Cardiovascular exam: Present regular rate and normal rhythm; Absent JVD Abdominal Exam Abdominal exam: Present soft and normal bowel sounds; Absent distention, tenderness or guarding Extremities Exam Extremities exam: Present normal inspection, full ROM and normal capillary refill; Absent calf tenderness Back Exam Back exam: Present normal inspection; Absent tenderness Neurological Exam Neurological exam: Present alert and oriented X3 Psychiatric Psychiatric exam: Present normal affect and normal mood Skin Skin exam: Present other (there is a table saw laceration from the tip of his right index finger down the midline into the nail bed. ) Lymphatic Lymphatic Findings: no adenopathy Medical Decision Making Medical Records Medical records reviewed: No I reviewed the patient's medical records. [place] Inquiry Pt receiving controlled substance: No Medical Decision Narrative: due to the severity of this wound he was transferred to the er.
[2023-12-18 14:21] VITALS: BP 143/72; PULSE 65; PULSE 70; RESP 13; TEMP 36.8; O2SAT 96; BMI 29.7
[2023-12-18 14:22] VITALS: BMI 29.7
--- NOTE | 2023-12-18 14:22 | XR_ITS ---
FINAL REPORT CLINICAL HISTORY: CUT WITH TABLE SAW distal index finger COMPARISON: None FINDINGS: 3 views of the right hand were obtained. There is a cortical defect involving the tuft of the second finger distal phalanx, compatible with the patient's known injury. There is a associated soft tissue injury present as well. There is moderate diffuse degenerative change in the hand, most severe involving the first CMC joint. IMPRESSION: Posttraumatic cortical defect of the second finger distal phalanx involving the tuft. Reviewed, Interpreted and Dictated by Saskia Warren MD Transcribed by Yue Turpin Authenticated and [facility]
[2023-12-18 14:34] VITALS: BP 124/65; PULSE 60; RESP 18; O2SAT 96
[2023-12-18 15:00] VITALS: BP 153/76; PULSE 65; RESP 16; O2SAT 96
--- NOTE | 2023-12-18 15:28 | PC.NURSE ---
DR LUNDBERG AT BEDSIDE
[2023-12-18 15:31] VITALS: BP 141/73; PULSE 57; O2SAT 96
--- NOTE | 2023-12-18 15:33 | ED_ITS ---
Discharge Plan Disposition Patient Disposition: Still a Patient Condition: Fair Prescriptions Prescriptions: New cephalexin 500 mg capsule 500 mg PO QID 5 Days Qty: 20 0RF No Action acyclovir 800 mg tablet 800 mg PO 5XD Qty: 60 2RF Rx Instructions: space evenly during waking hours omeprazole 40 mg capsule,delayed release(DR/EC) 40 mg PO DAILY 90 Days Qty: 90 1RF clobetasol 0.05 % ointment 1 applic topical BID 30 Days Qty: 30 2RF tamsulosin 0.4 mg capsule 0.4 mg PO DAILY 90 Days Qty: 90 0RF finasteride 5 mg tablet 5 mg PO DAILY 90 Days Qty: 90 1RF tizanidine [Zanaflex] 6 mg capsule 6 mg PO BID PRN (Reason: muscle spasticity) Qty: 30 2RF aspirin 81 MG tablet,delayed release (DR/EC) 81 mg PO DAILY Referrals Follow up/Referrals: Jasper Kaplan MD [Primary Care Provider] - See instructions Activity Restrictions/Add. Instructions Additional Instructions/Restrictions: Please have your sutures removed in 7 to 10 days. Return with any spreading redness or pus coming from the wound. Clinical Impressions Clinical Impression: Injury of nail bed of finger, Open fracture of tuft of distal phalanx of finger, Finger laceration Instructions Patient Instructions: DI for Laceration Repair Discharge ED Provider: Ozzie Flowers General Adult HPI General Chief complaint: Wound/Laceration Stated complaint: AO 12/18/23 @ 13:25, cut right finger Time Seen by Provider: 12/18/23 14:10 Mode of Arrival: Ambulatory Source of Information: Patient Limitations: No Limitations Description of Symptoms (Recalled from ER Triage Doc. by RN): pt presents to ED from [facility] for further evaluation. pt reports that today approx 1330 he was using a table saw at home, his hand slipped and he has a large laceration to the right hand pointer finger with nail bed involvement History of Present Illness HPI narrative: Patient is a 78-year-old male presenting today with a saw injury to the distal aspect of his right index finger. States he does not have a guard on it. Was seen at the urgent treatment clinic had an x-ray and was sent to the emergency department given the nailbed involvement. Patient denies injuries elsewhere Tdap is unknown. He has no antibiotic allergies. He has not had any loss of function or sensation. Related Data Home Medications Medication Instructions Recorded Confirmed aspirin 81 mg tablet,delayed 81 mg PO DAILY Heart disease 02/21/21 10/07/23 release Previous Rx's Medication Instructions Recorded omeprazole 40 mg capsule,delayed 40 mg PO DAILY stomach 90 days #90 06/10/23 release caps clobetasol 0.05 % topical ointment 1 applic topical BID 30 days #30 08/19/23 grams acyclovir 800 mg tablet 800 mg PO 5XD #60 tabs 10/07/23 tamsulosin 0.4 mg capsule 0.4 mg PO DAILY prostate 90 days 10/20/23 #90 caps finasteride 5 mg tablet 5 mg PO DAILY blood pressure 90 11/02/23 days #90 tabs tizanidine 6 mg capsule (Zanaflex) 6 mg PO BID PRN muscle spasticity 11/11/23 #30 caps cephalexin 500 mg capsule 500 mg PO QID 5 days #20 caps 12/18/23 Allergies Allergy/AdvReac Type Severity Reaction Status Date / Time [id number] Reductase AdvReac Mild Joint Pain Verified 10/07/23 10:37 Inhibitor PFSH [facility] Disclaimer: The information contained in this section may have been updated after the patient was seen, as this information can be updated by other users. Medical History Mild persistent asthma Allergic rhinitis Dyspnea on exertion Diffusion capacity of lung (dl), decreased Asthma Restrictive lung disease Allergic rhinitis, unspecified Family history of asthma Smoking history Dyspnea on exertion CAD (coronary artery disease) HLD (hyperlipidemia) HTN (hypertension) Dyspnea Sinus bradycardia Abnormal stress ECG Surgical History History of lumbar surgery History of bilateral inguinal hernia repair History of cholecystectomy History of surgery on arm Family History Mother Hypertension Cancer Father Hypertension Social History Smoking Status: Never smoker second hand exposure: No alcohol intake: never substance use type: denies use current occupational status: retired Travel in the last 8 weeks: None household members: spouse housing: house current occupational exposures/hazards: No caffeine: Yes ROS Obtained: Yes All systems reviewed & no additional complaints except as documented Physical Exam General General appearance: alert and in no apparent distress Respiratory Respiratory exam: Present normal lung sounds bilaterally Cardiovascular Cardiovascular exam: Present regular rate Extremities Exam Extremities exam: Present other (Distal phalanx of the right index finger there is a laceration that is vertically oriented going through the nailbed into the fat pad and soft tissue he has good capillary refill sensation flexion and extension in this area) Neurological Exam Neurological exam: Present alert and oriented X3 Medical Decision Making [place] Inquiry Pt receiving controlled substance: No Vital Signs: 12/18/23 13:52 12/18/23 14:21 12/18/23 14:21 Temperature 98.2 F 98.2 F Temperature Source Oral Oral Pulse Rate 65 Pulse Rate [Left Radial] 70 Pulse Rate [Radial] 65 Respiratory Rate 16 13 Blood Pressure Blood Pressure [Right Arm] 119/61 143/72 H Blood Pressure Mean Blood Pressure Mean [Right Arm] 80 95 Blood Pressure Source [Right Arm] Automatic Cuff Blood Pressure Position [Right Arm] Sitting 02 Sat by Pulse Oximetry 97 96 96 Oxygen Delivery Method Room Air Room Air 12/18/23 14:34 12/18/23 15:00 12/18/23 15:31 Temperature Temperature Source Pulse Rate 60 65 57 L Pulse Rate [Left Radial] Pulse Rate [Radial] Respiratory Rate 18 16 Blood Pressure 124/65 153/76 H 141/73 H Blood Pressure [Right Arm] Blood Pressure Mean 84 94 Blood Pressure Mean [Right Arm] Blood Pressure Source [Right Arm] Blood Pressure Position [Right Arm] 02 Sat by Pulse Oximetry 96 96 96 Oxygen Delivery Method Orders (Tests/Meds): ED MEDICATIONS Discontinued Medications Generic Name Dose Route Start Last Admin Trade Name Alexq PRN Reason Stop Dose Admin Cephalexin HCl 500 mg 12/18/23 15:31 12/18/23 15:44 Cephalexin 500mg Capsule PO 12/18/23 15:32 500 mg ONCE ONE Administration Tetanus/Reduced Diphtheria/Acell Pertussis 0.5 ml 12/18/23 15:31 12/18/23 15:43 Tet/Diphth/Pert-Adult 0.5ml Syringe IM 12/18/23 15:32 0.5 ml .ONCE ONE Administration ORDERS Category Date Time Status Hand XR right minimum 3 views [XR hand RT min 3V] Stat Exams 12/18/23 14:22 Taken Medical Decision Narrative: 78-year-old with a nailbed injury with a saw injury. Will update tetanus give Keflex. He does have a little bit of involvement in the volar fat pad. X-ray was performed which I first interpreted shows a small tuft fracture. Given the fact that his eponychial fold and germinal matrix are intact will simply place Dermabond over the involved nailbed from a distal standpoint and close the remainder of the wound. Will irrigate and give prophylactic antibiotics and have him follow-up with hand surgery as needed. He is aware of this plan. Procedures Laceration Laceration 1: Site: finger Side (If applicable): right Size (cm): 4 Description: linear and contaminated Depth: simple, single layer and hgttjyg-eot-loljzod Local Anesthetic: lidocaine 1% and with epi Amount of anesthesia used (mL): 8 (Digital block) Pre-repair: irrigated extensively, extensive debridement and wound margins revised Skin layer closed with: nylon and Dermabond (Nailbed was repaired with Dermabond) Size (cm): 3-0 Number of sutures: 3 Critical Care Critical Care Time Critical Care Time: No
[2023-12-18] MEDS: TET/DIPHTH/PERT-ADULT 0.5ML SYRINGE 0.5 ML IM (15:43)
[2023-12-18] MEDS: cephALEXin 500MG CAPSULE 500 MG PO (15:44)
[2023-12-18 17:07] VITALS: BP 148/77; PULSE 68; RESP 13; TEMP 36.7
== END 2023-12-18 17:14 | disposition home or self-care (01) ==
LOC: UTC 14:03 → ER 14:16
PROVIDERS: Emergency Provider Student in an Organized Health Care Education/Training Program; PCP Family Medicine
DX: S62.630B Displaced fracture of distal phalanx of right index finger, initial encounter for open fracture; Z23 Encounter for immunization; W31.2XXA Contact with powered woodworking and forming machines, initial encounter
CPT/HCPCS: 73130; 90471; 90715; 99283

== ENCOUNTER 2024-05-30 11:24 | Day surgery (SDC) | payer MEDICARE, OTHER, SELFPAY ==
[2024-05-27 13:21] VITALS: BMI 26.3
[2024-05-30 12:05] VITALS: BP 129/69; PULSE 60; RESP 18; TEMP 36.4; O2SAT 95
[2024-05-30] MEDS: 0.9 % SODIUM CHLORIDE 1000ML 1,000 ML 25 ML IV (12:13)
--- NOTE | 2024-05-30 12:52 | P.HP_ITS ---
History of Present Illness *Admission Date: 05/30/24 *Reason for visit:: Surveillance-personal history of adenomatous polyps *History of present illness: Mr. Locke is a 78-year-old gentleman who is here for surveillance colonoscopy secondary to a personal history of adenomatous polyps. He had a colonoscopy 10 years ago at which time a couple of benign polyps were removed. His last colonoscopy with me 5 years ago revealed 2 benign polyps(Tubular adenomas x 2) which were removed. The examination is deemed medically necessary for colonoscopy. The patient has been seen, interviewed and examined prior to the procedure by both myself and the anesthesia provider. [facility] Disclaimer: The information contained in this section may have been updated after the patient was seen, as this information can be updated by other users. Medical History Mild persistent asthma Allergic rhinitis Dyspnea on exertion Diffusion capacity of lung (dl), decreased Asthma Restrictive lung disease Allergic rhinitis, unspecified Family history of asthma Smoking history Dyspnea on exertion CAD (coronary artery disease) HLD (hyperlipidemia) HTN (hypertension) Dyspnea Sinus bradycardia Abnormal stress ECG Surgical History History of lumbar surgery History of bilateral inguinal hernia repair History of cholecystectomy History of surgery on arm Family History Mother Hypertension Cancer Father Hypertension Social History Smoking Status: Never smoker second hand exposure: No alcohol intake: never substance use type: denies use current occupational status: retired Travel in the last 8 weeks: None household members: spouse housing: house current occupational exposures/hazards: No caffeine: Yes Other Medical History Have you received the Flu Vaccine for this season: Yes Have you received the Pneumonia Vaccine: No Review of Systems Review of Systems Review of systems (narrative): Negative *Cardiovascular Comments: Negative *Gastrointestinal Comments: Negative *Genitourinary Comments: Negative *Musculoskeletal Comments: Negative *Neurologic Comments: Negative Meds Home Medications and Allergies Home Medications ?Medication ?Instructions ?Recorded ?Confirmed ?Type aspirin 81 mg tablet,delayed 81 mg PO DAILY Heart disease 02/21/21 05/30/24 History release clobetasol 0.05 % topical ointment 1 applic topical BID 30 days #30 08/19/23 05/30/24 Rx grams acyclovir 800 mg tablet 800 mg PO 5XD #60 tabs 10/07/23 05/30/24 Rx finasteride 5 mg tablet 5 mg PO DAILY blood pressure 90 11/02/23 05/30/24 Rx days #90 tabs tizanidine 6 mg capsule (Zanaflex) 6 mg PO BID PRN muscle spasticity 11/11/23 05/30/24 Rx #30 caps omeprazole 40 mg capsule,delayed 40 mg PO DAILY stomach 90 days #90 04/01/24 05/30/24 Rx release caps tamsulosin 0.4 mg capsule 0.4 mg PO DAILY prostate 90 days 04/28/24 05/30/24 Rx #90 caps New Prescriptions to Start Prescriptions: Allergies Allergy/AdvReac Type Severity Reaction Status Date / Time [id number] Reductase AdvReac Mild Joint Pain Verified 12/28/23 09:01 Inhibitor Exam Data for Last 24 hours Vital signs and Labs for Last 24 Hours: Temp Pulse Resp BP Pulse Ox O2 Del Method 97.5 F L 60 18 129/69 95 Room Air 05/30/24 12:05 05/30/24 12:05 05/30/24 12:05 05/30/24 12:05 05/30/24 12:05 05/30/24 12:05 I & O for Last 24 hours: Intake & Output 05/27/24 05/28/24 05/29/24 05/30/24 23:59 23:59 23:59 23:59 Weight 205 lb *Routine HEENT Exam Head: Present normocephalic Eye: Present EOMI and PERRL ENT: Present mucous membranes moist *Routine Neck Exam Neck: Present supple *Routine Respiratory Exam Respiratory: Present CTA bilaterally *Routine Cardiovascular Exam Cardiovascular: Present RRR *Routine Abdominal Exam Abdominal: Present soft and normoactive bowel sounds; Absent tenderness *Routine Rectal Exam Rectal:: deferred *Routine Genitalia Exam Genitalia:: deferred *Routine Extremities Exam Extremities: Absent cyanosis, clubbing or edema *Routine Skin Exam Skin: Present warm; Absent rash *Routine Neurological Exam Neurological: Present alert and oriented X3 Assessment and Plan *Assessment and plan (1) Personal history of adenomatous and serrated colon polyps: Status: Acute Category: Medical Code(s): Z86.0101 - Personal history of adenomatous and serrated colon polyps Plan A/P: 1. Personal history of adenomatous colon polyps with last colonoscopy March 2019 is the preprocedural diagnosis. The patient will be anesthetized/sedated using MAC sedation. The patient has been seen and examined. Cardiac and lung assessment prior to the examination is stable. Proceed with planned surveillance colonoscopy
--- NOTE | 2024-05-30 12:55 | HMH.PROCNOTE ---
[facility] Procedure Note Date: 05/30/24 Time: 13:21 Procedure Note:: Colonoscopy Procedure Report: Colonoscopy with cold snare polypectomy Endoscopist: Luis Hadley II, MD Referring physician: Jasper Kaplan MD Date of Procedure: May 30, 2024 Equipment: Olympus 190 variable stiffness pediatric colonoscope Sedation: MAC sedation Indication: Mr. Locke is a 78-year-old gentleman who is here for follow-up surveillance colonoscopy secondary to a personal history of adenomatous polyps. His colonoscopy in March 2019 revealed 2 polyps (tubular adenomas x 2) which were removed. He had a colonoscopy in 2012 or 2013 at which time a couple of benign polyps (adenomas) were removed. The patient does report intentional weight loss of 50 pounds. With the diet, he has developed some constipation. He reports no rectal bleeding, abdominal pain or family history of colon cancer. Procedure: Prior to the procedure, a history and physical exam was performed, and patient's medications and allergies were reviewed. The risks, benefits and alternatives of the sedation and procedure were discussed with the patient. All questions were answered and informed consent was obtained. The patient was brought to the procedure room. Patient identification and proposed procedure were verified by the physician and the nurse. The patient was placed in a left lateral decubitus position and the scope was passed under direct vision. Throughout the procedure, the patient's blood pressure, pulse, and oxygen saturations were monitored continuously. The colonoscopy was accomplished without difficulty. The patient tolerated the procedure well. Findings: On digital rectal examination there was normal rectal tone. There were no external hemorrhoids. The colonoscope was introduced through the anal canal to the rectum and advanced to the cecum. The ileocecal valve and appendiceal orifice were identified. The scope was advanced a short distance into the ileum which appeared grossly normal. The scope was then withdrawn into the colon. There was a single 4 mm polyp in the ascending colon removed via cold snare polypectomy. The remaining cecum, ascending and transverse colon and mucosa were grossly normal. There were scattered phlebectasia's throughout the transverse/descending colon. The rectum itself was normal. Upon retroflexion within the rectum there were grade 2 internal hemorrhoids. The preparation was fair throughout with [place] Preparation Score of 7 out of 9. The cecal time was 14 minutes. Impression: 1. 4 mm ascending colon polyp Plan: I will follow-up the polyp histology. The patient should not require any further preventative/surveillance colonoscopy. We will discuss treatment options for his chronic constipation.
[2024-05-30 12:56] VITALS: O2SAT 100
--- NOTE | 2024-05-30 12:57 | EXP.ANES.CKL ---
[facility] Disclaimer: The information contained in this section may have been updated after the patient was seen, as this information can be updated by other users. Medical History Mild persistent asthma Allergic rhinitis Dyspnea on exertion Diffusion capacity of lung (dl), decreased Asthma Restrictive lung disease Allergic rhinitis, unspecified Family history of asthma Smoking history Dyspnea on exertion CAD (coronary artery disease) HLD (hyperlipidemia) HTN (hypertension) Dyspnea Sinus bradycardia Abnormal stress ECG Surgical History History of lumbar surgery History of bilateral inguinal hernia repair History of cholecystectomy History of surgery on arm Family History Mother Hypertension Cancer Father Hypertension Social History Smoking Status: Never smoker second hand exposure: No alcohol intake: never substance use type: denies use current occupational status: retired Travel in the last 8 weeks: None household members: spouse housing: house current occupational exposures/hazards: No caffeine: Yes [facility] Anesthesia Checklist Patient Identification Patient Identification: Arm Band and Verbal (Name & ) Structural Data Admitted From: Home Planned Operative Procedure/s: Colonoscopy Consent for Planned Operative Procedure(s) Verified: Yes Verified Documents: Surgical Consent and History and Physical NPO Status Verified Time NPO: 09:10 Chart Verification Results Verified: CBC, BMP, ECG and Chest Xray Additional verifications Patient : No Anesthesia Reactions: No Cardiovascular Assessment Heart Sounds: S1 & S2 Pulse Rhythm: Irregular Peripheral Edema: No Airway Assessment Mallampati Score:: Class II C-Spine Mobility Assessed: Yes (Limited extension) TMJ Mobility Assessed: Yes Dentition: Good Dentition (Nothing loose per pt.) Neurological Assessment Level of Consciousness: Awake, Alert, Appropriate and Follows Commands Hx Seizures: No Numbness or tingling in extremities: No Anesthesia Plan Anesthesia Risk discussed: Yes Anesthesia Plan: Verified ASA Class: II Anesthesia Type: MAC
[2024-05-30 13:24] VITALS: BP 100/46; PULSE 54; RESP 18; TEMP 36.5; O2SAT 95
[2024-05-30 13:34] VITALS: BP 101/59; PULSE 54; RESP 18; O2SAT 98
[2024-05-30 13:39] VITALS: BP 136/65; PULSE 51; RESP 18; O2SAT 98
[2024-05-30 13:54] VITALS: BP 118/66; PULSE 51; RESP 18; O2SAT 98
== END 2024-05-30 14:05 | disposition home or self-care (01) ==
PROVIDERS: PCP Family Medicine; Visit Provider Internal Medicine Gastroenterology
PROC: (CPT 45385; principal; 2024-05-30 13:00)
DX: K63.5 Polyp of colon (principal); K64.1 Second degree hemorrhoids; Z86.0101 Personal history of adenomatous and serrated colon polyps
CPT/HCPCS: 45385; 88305; J7030

== ENCOUNTER 2024-08-12 17:22 | Outpatient (CLI) | payer MEDICARE, OTHER, SELFPAY ==
[2024-08-12 16:17] LABS: Basophils # 0.1 K/mm3 (0-0.2); Basophils % 0.7 % (0.1-2.0); Eosinophils # 0.2 K/mm3 (0.0-0.4); Eosinophils % 2.4 % (0.1-12.0); Hemoglobin 12.1 g/dL (14.1-18.0); Lymphocytes % 13.8 % (10-50); Mean Corpuscular HGB Conc 32.7 g/dL (31.8-35.4); Mean Corpuscular Volume 94.9 fl (80-94); Mean Platelet Volume 12.5 fl (7.4-10.4); Monocytes # 0.7 K/mm3 (0.1-1.0); Monocytes % 10.6 % (1.7-9.3); Neutrophils # 5.1 K/mm3 (1.8-7.8); Neutrophils % 72.1 % (37.0-80.0); Platelet Count 269 K/mm3 (142-424); Red Cell Distribution Width 14.9 % (11.5-17.5)
[2024-08-12 16:50] LABS: Albumin Level 3.7 g/dl (3.5-5.0); Chloride 103 mmol/L (98-107); Sodium 138 mmol/L (136-145)
[2024-08-12 16:51] LABS: Potassium 4.7 mmoL/L (3.5-5.1)
[2024-08-12 16:53] LABS: Alanine Aminotransferase 409 U/L (12-78); Albumin/Globulin Ratio 1.4 (1.1-1.8); Alkaline Phosphatase 795 U/L (38-126); Anion Gap 14.7 mEq/L (5-15); Aspartate Amino Transferase 261 U/L (17-59); Blood Urea Nitrogen 17 mg/dl (9-20); Carbon Dioxide 25 mmol/L (22.0-30.0); Cholesterol 170 mg/dl (140-200); Estimated Glomerular Filt Rate 109 ml/min (>60); GFR (African American) 132 ML/MIN (>60); Globulin 2.7 g/dL (1.3-3.2); Total Protein,Serum 6.4 g/dl (6.3-8.2); Triglycerides 88 mg/dl (30-150); VLDL Cholesterol 18 mg/dL (0-40)
[2024-08-12 16:54] LABS: Glucose 101 mg/dl (74-100); HDL Cholesterol 34 mg/dl (40-60)
[2024-08-12 17:05] LABS: Direct LDL Cholesterol 95.27 mg/dL (100-129)
[2024-08-12 17:30] LABS: Thyroid Stimulating Hormone 2.42 uIU/mL (0.465-4.68)
[2024-08-12 17:36] LABS: HIV Combo NEGATIVE (Negative)
[2024-08-12 17:51] LABS: Hepatitis C Ab Qual. W/ RFX NEGATIVE (Negative)
== END 2024-08-12 23:59 | disposition home or self-care (01) ==
LOC: LAB.DROPOF 17:23
PROVIDERS: PCP Family Medicine; Visit Provider Family Medicine
DX: R10.9 Unspecified abdominal pain (principal); R06.09 Other forms of dyspnea; E78.2 Mixed hyperlipidemia; Z11.59 Encounter for screening for other viral diseases; E78.5 Hyperlipidemia, unspecified; Z11.4 Encounter for screening for human immunodeficiency virus [HIV]
CPT/HCPCS: 80053; 80061; 84443; 85025; 86803; 87389

== ENCOUNTER 2024-08-15 12:59 | Inpatient (IN) | payer MEDICARE, OTHER, SELFPAY ==
[2024-08-15 13:00] VITALS: BP 104/60; PULSE 62; RESP 18; TEMP 36.9; O2SAT 98; BMI 27.1
--- NOTE | 2024-08-15 13:39 | ED_ITS ---
<Statement entered by Jessy Negron DO - 08/15/24 16:29> I was consulted by the RASHMI, and we discussed the complexity of the problems being addressed. I approved the treatment and management plan for this patient's care in the emergency department, thus performing a substantive portion of the medical decision making. Jessy Negron DO Discharge Plan Disposition Patient Disposition: Admitted Condition: Serious Prescriptions Prescriptions: No Action acyclovir 800 mg tablet 800 mg PO 5XD Qty: 60 2RF Rx Instructions: space evenly during waking hours clobetasol 0.05 % ointment 1 applic topical BID 30 Days Qty: 30 2RF finasteride 5 mg tablet See Rx Instructions .ROUTE .COMPLEX Qty: 90 0RF Dose Instruction: TAKE 1 TABLET BY MOUTH ONCE DAILY Rx Instructions: TAKE 1 TABLET BY MOUTH ONCE DAILY omeprazole 40 mg capsule,delayed release(DR/EC) 40 mg PO DAILY 90 Days Qty: 90 0RF tamsulosin 0.4 mg capsule See Rx Instructions .ROUTE .COMPLEX Qty: 90 0RF Dose Instruction: TAKE 1 CAPSULE BY MOUTH ONCE DAILY FOR PROSTATE FOR 90 DAYS Rx Instructions: TAKE 1 CAPSULE BY MOUTH ONCE DAILY FOR PROSTATE FOR 90 DAYS aspirin 81 MG tablet,delayed release (DR/EC) 81 mg PO DAILY Referrals Follow up/Referrals: Jasper Kaplan MD [Primary Care Provider] - See instructions Clinical Impressions Clinical Impression: 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 Patient gives a several month history of dyspepsia mainly described as belching and not feeling well primarily in the epigastrium. He saw his PCP on Thursday who did basic blood work and when the blood work came back noticed that he had transaminitis and hyperbilirubinemia. Patient was notified today to come to the emergency department for further evaluation. Patient denies any chest pain fever chills hemoptysis hematochezia melena nausea vomiting diarrhea. He does have a history of previous cholecystectomy denies any family or personal history of cancer of the abdomen but his mother had breast cancer, is not a drinker denies history of IV drug use. Related Data Home Medications ?Medication ?Instructions ?Recorded ?Confirmed aspirin 81 mg tablet,delayed 81 mg PO DAILY Heart disease 02/21/21 08/04/24 release Previous Rx's ?Medication ?Instructions ?Recorded clobetasol 0.05 % topical ointment 1 applic topical BID 30 days #30 08/19/23 grams acyclovir 800 mg tablet 800 mg PO 5XD #60 tabs 10/07/23 finasteride 5 mg tablet See Rx Instructions .Route 06/08/24 .COMPLEX #90 tabs omeprazole 40 mg capsule,delayed 40 mg PO DAILY stomach 90 days #90 07/07/24 release caps tamsulosin 0.4 mg capsule See Rx Instructions .Route 07/21/24 .COMPLEX #90 caps Allergies Allergy/AdvReac Type Severity Reaction Status Date / Time [id number] Reductase AdvReac Mild Joint Pain Verified 08/04/24 15:00 Inhibitor PFSH [facility] Disclaimer: The information contained in this section may have been updated after the patient was seen, as this information can be updated by other users. Medical History (Updated 08/15/24 @ 15:56 by LINDA Navarrete) Mild persistent asthma Allergic rhinitis Dyspnea on exertion Diffusion capacity of lung (dl), decreased Asthma Restrictive lung disease Allergic rhinitis, unspecified Family history of asthma Smoking history Dyspnea on exertion CAD (coronary artery disease) HLD (hyperlipidemia) HTN (hypertension) Dyspnea Sinus bradycardia Abnormal stress ECG Surgical History (Updated 08/04/24 @ 15:08 by Daily Cm MA) H/O colonoscopy History of lumbar surgery History of bilateral inguinal hernia repair History of cholecystectomy History of surgery on arm Family History Mother Hypertension Cancer Father Hypertension Social History Smoking Status: Unknown if ever smoked second hand exposure: No alcohol intake: never substance use type: denies use current occupational status: retired Travel in the last 8 weeks: None household members: spouse housing: house current occupational exposures/hazards: No caffeine: Yes Have you lived/traveled outside US in past 30 days?: No Contact w/someone who lives/traveled outside US past 30 days?: No Exposure to someone with infectious disease in past 14 days?: No Do you have a fever (greater than 100.4 F or 38 C)?: No Have you tested positive for COVID-19: No Exposed to someone with COVID-19 in past 14 days?: No Do you have a sore throat?: No Do you have a cough?: No Do you have any weakness?: No Do you have any diarrhea?: No Are you experiencing any unusual bleeding?: No Do you have any muscle aches/pain?: No Do you have any abdominal pain?: No Are you experiencing loss of taste or smell?: No Other Medical History Have you received the Flu Vaccine for this season: Yes Have you received the Pneumonia Vaccine: No ROS Obtained: Yes Systems reviewed as appropriate & no additional complaints except as documented Physical Exam General General appearance: alert Eye Eye exam: Present scleral icterus Respiratory Respiratory exam: Present normal lung sounds bilaterally Cardiovascular Cardiovascular exam: Present regular rate Neurological Exam Neurological exam: Present alert and oriented X3 Medical Decision Making Medical Records Medical records reviewed: Yes I reviewed the patient's medical records. Screening: Per USPSTF and CDC recommendations, given the prevalence of disease in our region, it is our hospital?s policy to screen for HIV and viral Hepatitis for all patients aged 18 and over and those with ongoing risk factors. [place] Inquiry Pt receiving controlled substance: No Vital Signs: 08/15/24 13:00 Temperature 98.4 F Temperature Source Oral Pulse Rate [Left Radial] 62 Respiratory Rate 18 Blood Pressure [Right Arm] 104/60 L Blood Pressure Mean [Right Arm] 74 02 Sat by Pulse Oximetry 98 Oxygen Delivery Method Room Air Lab Data Lab results reviewed: Yes I reviewed the patient's lab results. Lab Results 08/15/24 13:50: WBC 7.2, RBC 3.65 L, Hgb 11.4 L, Hct 33.6 L, MCV 92.1, MCH 31.2, MCHC 33.9, RDW 15.0, Plt Count 244, MPV 11.6 H, Neut % (Auto) 76.6, Lymph % (Auto) 11.9, [place] % (Auto) 8.9, Eos % (Auto) 1.4, Baso % (Auto) 0.6, Neut # (Auto) 5.5, Lymph # (Auto) 0.9, [place] # (Auto) 0.6, Eos # (Auto) 0.1, Baso # (Auto) 0.0, PT 12.0, INR 1.10, APTT 23.7, Sodium 137, Potassium 4.3, Chloride 103, Carbon Dioxide 25, Anion Gap 13.3, BUN 15, Creatinine 0.70, Estimated Creat Clear 77, Estimated GFR 109, Est GFR ( Amer) 132, Glucose 147 H, Hemoglobin A1c 5.0, Calcium 8.6, Total Bilirubin 4.8 H, AST 324 H*, ALT 403 H*, Alkaline Phosphatase 774 H, Total Protein 6.8, Albumin 3.8, Globulin 3.0, Albumin/Globulin Ratio 1.3, Acetaminophen < 10 L, Monoscreen Negative 08/15/24 14:05: Lactate 1.0 08/15/24 13:50 08/15/24 13:50 Orders (Tests/Meds): ED MEDICATIONS Generic Name Dose Route Start Last Admin Trade Name Freq PRN Reason Stop Dose Admin Sodium Chloride 10 ml 08/15/24 13:57 08/15/24 13:58 Sodium Chloride 0.9% 10ml Syr (Rad Only) IV 09/14/24 13:56 10 ml NEEDED PRN Administration Maintain IV Site Discontinued Medications Generic Name Dose Route Start Last Admin Trade Name Freq PRN Reason Stop Dose Admin Iopamidol 75 ml 08/15/24 13:57 08/15/24 13:58 Iopamidol-370 (76%);100ml Bottle IV 08/15/24 13:58 75 ml ONCE ONE Administration ORDERS Category Date Time Status CT abdomen pelvis w con Stat Cat Scan 08/15/24 13:42 Completed Consult to Gastroenterology [CONS] Routine Cons 08/15/24 15:54 Active GI consult [Consult to Gastroenterology] [CONS] Routine Cons 08/15/24 16:15 Active US RUQ [US abdomen limited] Stat Exams 08/15/24 14:42 Taken Acetaminophen Stat Lab 08/15/24 13:50 Completed BNP [NT Pro Brain Natriuretic Pep.] Stat Lab 08/15/24 13:50 Received Blood alcohol [Ethyl Alcohol] Stat Lab 08/15/24 13:50 Received CA 19-9 Stat Lab 08/15/24 15:59 Ordered CBC w/Auto Diff [Complete Blood Count Auto Diff] Stat Lab 08/15/24 13:50 Completed CEA Stat Lab 08/15/24 15:59 Ordered CMP [Comprehensive Metabolic Panel] Stat Lab 08/15/24 13:50 Completed Complete Blood Count Auto Diff AMLAB Lab 08/16/24 06:00 Ordered Comprehensive Metabolic Panel AMLAB Lab 08/16/24 06:00 Ordered HIV Combo Stat Lab 08/15/24 13:50 Received Hemoglobin A1C Stat Lab 08/15/24 13:50 Completed Hepatitis C Ab Qual. W/ RFX Stat Lab 08/15/24 13:50 Received Hepatitis Panel Routine Lab 08/15/24 13:50 Received Lactic Acid Stat Lab 08/15/24 14:05 Completed Lipase Stat Lab 08/15/24 13:50 Received Lipid Panel AMLAB Lab 08/16/24 06:00 Ordered Magnesium AMLAB Lab 08/16/24 06:00 Ordered Magnesium Stat Lab 08/15/24 13:50 Received Monoscreen (Rapid) Stat Lab 08/15/24 13:50 Completed PT/PTT Stat Lab 08/15/24 13:50 Completed Procalcitonin Stat Lab 08/15/24 13:50 Received UA [Urinalysis and Microscopic] Stat Lab 08/15/24 13:43 Ordered Medical Decision Narrative: In summary patient is a 79-year-old male who presents to the emergency department for evaluation of transaminitis and hyperbilirubinemia. Patient is arriving with a blood pressure of 104/60 heart rate 62 respiratory rate 18 O2 sats 98% on room air upon arrival, and afebrile at 98.4. Physical exam is remarkable for visible jaundice including scleral icterus, normal breath sounds normal heart sounds mild epigastric tenderness to palpation but no rebound no guarding no rigidity. Bowel sounds normal active. No asterixis. Differential diagnosis includes acute liver failure versus hepatitis versus cirrhosis versus biliary neoplasm etc. Initial workup will be conducted with hematologic labs toxicity labs CT scan abdomen pelvis. Initial interventions include crystalloid bolus for now. Initial workup reviewed by me patient has a white count of 7.2 normal H&H no shift on differential, INR is 1.10, CMP significant for a bilirubin of 4.8 today and AST of 324 today and ALT of 403 today and alk phos of 774 and the remainder of his hematologic labs are nonactionable. My personal interpretation of his CT scan abdomen pelvis shows an obstructive pancreatic head mass with biliary ductal dilatation and pancreatic duct dilatation. Given this I had interactive discussion with gastroenterology regarding patient RAHMAN and findings about patient management and plan is for ERCP tomorrow and potential EUS with biopsy, I then had an interactive discussion with hospital medicine regarding patient RAHMAN and findings about patient management and patient will be admitted for further evaluation and care. Critical Care Critical Care Time Critical Care Time: Yes Attestation: On 08/15/24, the high probability of a clinically significant, sudden or life threatening deterioration of the following system(s) required my full and direct attention, intervention and personal management. The time I documented below is in addition to time spent performing reported procedures but includes the following listed in this critical care notation. Total Time Total Critical Care Time: 35
--- NOTE | 2024-08-15 13:42 | CT_ITS ---
FINAL REPORT TECHNIQUE: After the administration of oral and intravenous contrast, axial images were obtained through the abdomen and pelvis by computed tomography. The study was performed with techniques to keep radiation dose as low as reasonably achievable, (ALARA). Individual dose reduction techniques using automated exposure control or adjustment of mA and/or kV according to the patient's size were employed. CLINICAL HISTORY: Hyperbilirubinemia and transaminitis COMPARISON: None FINDINGS: CT ABDOMEN AND PELVIS WITH CONTRAST: There is moderate intra and extrahepatic biliary ductal dilatation. The gallbladder has been surgically resected. There is a 3.5 cm mass in the head of the pancreas with increased pancreatic ductal dilatation, measuring up to 1.2 cm in size. This pancreatic head mass does not appear to surround the superior mesenteric artery. There is also obstruction of the duct in the uncinate process. The spleen and kidneys are unremarkable in appearance. No free fluid is noted in the upper abdomen. No focal adenopathy is present. Pelvis: The appendix is not identified. The prostate is enlarged, measuring greater than 5.1 cm in diameter, and indents the base of the bladder. No pelvic free fluid or masses identified. IMPRESSION: Mass in the head of the pancreas, 3.5 cm in diameter, producing intra and extrahepatic biliary ductal dilatation. The overall appearance is worrisome for pancreatic neoplasm. Percutaneous biopsy because of location would be challenging, and endoscopic tissue sampling or PET/CT would be helpful for further evaluation. There is also obstruction of a duct in the uncinate process of the pancreas. Reviewed, Interpreted and Dictated by Frederick Yoder MD Transcribed by Yue Turpin Authenticated and [facility]
[2024-08-15] MEDS: IOPAMIDOL-370 (76%);100ML BOTTLE 75 ML IV (13:58)
[2024-08-15] MEDS: SODIUM CHLORIDE 0.9% 10ML SYR (RAD ONLY) 10 ML IV (13:58)
[2024-08-15 14:02] LABS: Basophils % 0.6 % (0.1-2.0); Eosinophils # 0.1 K/mm3 (0.0-0.4); Eosinophils % 1.4 % (0.1-12.0); Hematocrit 33.6 % (42.0-52.0); Hemoglobin 11.4 g/dL (14.1-18.0); Lymphocytes # 0.9 K/mm3 (0.7-4.5); Lymphocytes % 11.9 % (10-50); Mean Corpuscular HGB Conc 33.9 g/dL (31.8-35.4); Mean Corpuscular Hemoglobin 31.2 pg (27.0-31.2); Mean Corpuscular Volume 92.1 fl (80-94); Mean Platelet Volume 11.6 fl (7.4-10.4); Monocytes # 0.6 K/mm3 (0.1-1.0); Monocytes % 8.9 % (1.7-9.3); Neutrophils # 5.5 K/mm3 (1.8-7.8); Neutrophils % 76.6 % (37.0-80.0); Platelet Count 244 K/mm3 (142-424); Red Blood Count 3.65 M/mm3 (4.60-6.20); White Blood Count 7.2 K/mm3 (4.8-10.8)
[2024-08-15 14:14] LABS: Monoscreen (Rapid) Negative (Negative)
[2024-08-15 14:23] LABS: Activated Partial Thrombo Time 23.7 seconds (22.5-28.5)
--- NOTE | 2024-08-15 14:42 | US_ITS ---
FINAL REPORT CLINICAL HISTORY: new transaminitis COMPARISON: None FINDINGS: Sonographic images of the right upper quadrant were obtained. The pancreas is partially obscured. There is fatty infiltration of the liver. The patient has undergone prior cholecystectomy. There is no evidence of biliary ductal dilatation.The common duct measures 10 mm which may be within normal limits and a 78-year-old patient who has undergone a prior cholecystectomy. Limited images of the right kidney are unremarkable. IMPRESSION: Fatty infiltration of the liver. The common bile duct measures 10 mm, which may be within normal limits for a 78-year-old patient who has undergone a prior cholecystectomy. Clinical correlation is suggested. Reviewed, Interpreted and Dictated by Frederick Yoder MD Transcribed by Yue Turpin Authenticated and [facility]
[2024-08-15 15:15] VITALS: BP 171/71; PULSE 54; RESP 20; TEMP 36.7; O2SAT 97
[2024-08-15 16:05] LABS: Albumin Level 3.8 g/dl (3.5-5.0); Chloride 103 mmol/L (98-107); Potassium 4.3 mmoL/L (3.5-5.1); Sodium 137 mmol/L (136-145)
[2024-08-15 16:08] LABS: Alanine Aminotransferase 403 U/L (12-78); Albumin/Globulin Ratio 1.3 (1.1-1.8); Alkaline Phosphatase 774 U/L (38-126); Anion Gap 13.3 mEq/L (5-15); Aspartate Amino Transferase 324 U/L (17-59); Bilirubin,Total 4.8 mg/dl (0.2-1.3); Blood Urea Nitrogen 15 mg/dl (9-20); Calcium 8.6 mg/dl (8.4-10.2); Carbon Dioxide 25 mmol/L (22.0-30.0); Creatinine Clearance Estimated 77 mL/min (50-200); Estimated Glomerular Filt Rate 109 ml/min (>60); GFR (African American) 132 ML/MIN (>60); Glucose 147 mg/dl (74-100); Total Protein,Serum 6.8 g/dl (6.3-8.2)
[2024-08-15 16:10] LABS: Acetaminophen < 10 ug/ml (10-30)
--- NOTE | 2024-08-15 16:16 | P.HP_ITS ---
History of Present Illness *Admission Date: 08/15/24 *Reason for visit:: abnormal labs, night sweats, belching *History of present illness: Mr. Locke is a 79-year-old male with history of BPH, osteoarthritis. No other significant history. Presents to the ER due to some abnormal labs o btained in the end of last week by his PCP. States that a year ago he started to try to lose weight intentionally but since June has lost about 10 pounds without trying and has had a very poor appetite. Increased belching. Early satiety. States he has noticed his urine become very dark to orange over the past month. Denies shey nausea and vomiting but has had very little appetite. Having night sweats. Labs Thursday obtained by his PCP showed concern for elevated liver enzymes and hyperbilirubinemia. He denies significant abdominal pain, nausea, vomiting. No change in stool. No blood in vomit or stool. On arrival to the ER, repeat labs were obtained showing bilirubin of 4.8, AST and ALT elevated at 324 and 403 respectively. Alk phos 774. Kidney function normal. CT of his abdomen and pelvis was obtained showing a pancreatic mass. GI was consulted and recommended admission for further workup and ERCP in the morning. Medicine consulted for admission. On arrival to the floor, I recognize the patient is a former primary care patient of mine from several years ago. He has lost a substantial amount of weight over the past 2 years but states most of it was lost over the past year per his report. Denies fever, confusion, body aches. Does complain however of GI illness with norovirus in May. States he has been having night sweats as above. Unintentional weight loss. Appears concerned about news from CT imaging. Patient does not smoke, denies alcohol use, no drug use. Does complain of generalized fatigue that is worsened over the past year [facility] Disclaimer: The information contained in this section may have been updated after the patient was seen, as this information can be updated by other users. Medical History Mild persistent asthma Allergic rhinitis Dyspnea on exertion Diffusion capacity of lung (dl), decreased Asthma Restrictive lung disease Allergic rhinitis, unspecified Family history of asthma Smoking history Dyspnea on exertion CAD (coronary artery disease) HLD (hyperlipidemia) HTN (hypertension) Dyspnea Sinus bradycardia Abnormal stress ECG Surgical History H/O colonoscopy History of lumbar surgery History of bilateral inguinal hernia repair History of cholecystectomy History of surgery on arm Family History Mother Hypertension Cancer Father Hypertension Social History Smoking Status: Unknown if ever smoked second hand exposure: No alcohol intake: never substance use type: denies use current occupational status: retired Travel in the last 8 weeks: None household members: spouse housing: house current occupational exposures/hazards: No caffeine: Yes Have you lived/traveled outside [place] in past 30 days?: No Contact w/someone who lives/traveled outside US past 30 days?: No Exposure to someone with infectious disease in past 14 days?: No Do you have a fever (greater than 100.4 F or 38 C)?: No Have you tested positive for COVID-19: No Exposed to someone with COVID-19 in past 14 days?: No Do you have a sore throat?: No Do you have a cough?: No Do you have any weakness?: No Do you have any diarrhea?: No Are you experiencing any unusual bleeding?: No Do you have any muscle aches/pain?: No Do you have any abdominal pain?: No Are you experiencing loss of taste or smell?: No Other Medical History Have you received the Flu Vaccine for this season: Yes Have you received the Pneumonia Vaccine: No Review of Systems Review of Systems Review of systems (narrative): 14 point review of systems performed, pertinent positives and negatives as per HPI Meds Home Medications and Allergies Home Medications ?Medication ?Instructions ?Recorded ?Confirmed ?Type aspirin 81 mg tablet,delayed 81 mg PO DAILY Heart disease 02/21/21 08/04/24 History release clobetasol 0.05 % topical ointment 1 applic topical BID 30 days #30 08/19/23 08/04/24 Rx grams acyclovir 800 mg tablet 800 mg PO 5XD #60 tabs 10/07/23 08/04/24 Rx finasteride 5 mg tablet See Rx Instructions .Route 06/08/24 08/04/24 Rx .COMPLEX #90 tabs omeprazole 40 mg capsule,delayed 40 mg PO DAILY stomach 90 days #90 07/07/24 08/04/24 Rx release caps tamsulosin 0.4 mg capsule See Rx Instructions .Route 07/21/24 08/04/24 Rx .COMPLEX #90 caps New Prescriptions to Start Prescriptions: Allergies Allergy/AdvReac Type Severity Reaction Status Date / Time [id number] Reductase AdvReac Mild Joint Pain Verified 08/04/24 15:00 Inhibitor Exam Data for Last 24 hours Vital signs and Labs for Last 24 Hours: Temp Pulse Resp BP Pulse Ox O2 Del Method 98.4 F 62 18 104/60 L 98 Room Air 08/15/24 13:00 08/15/24 13:00 08/15/24 13:00 08/15/24 13:00 08/15/24 13:00 08/15/24 13:00 Laboratory Results - last 24 hr 08/15/24 13:50: WBC 7.2, RBC 3.65 L, Hgb 11.4 L, Hct 33.6 L, MCV 92.1, MCH 31.2, MCHC 33.9, RDW 15.0, Plt Count 244, MPV 11.6 H, Neut % (Auto) 76.6, Lymph % (Auto) 11.9, [place] % (Auto) 8.9, Eos % (Auto) 1.4, Baso % (Auto) 0.6, Neut # (Auto) 5.5, Lymph # (Auto) 0.9, [place] # (Auto) 0.6, Eos # (Auto) 0.1, Baso # (Auto) 0.0, PT 12.0, INR 1.10, APTT 23.7, Sodium 137, Potassium 4.3, Chloride 103, Carbon Dioxide 25, Anion Gap 13.3, BUN 15, Creatinine 0.70, Estimated Creat Clear 77, Estimated GFR 109, Est GFR ( Amer) 132, Glucose 147 H, Hemoglo bin A1c 5.0, Calcium 8.6, Total Bilirubin 4.8 H, AST 324 H*, ALT 403 H*, Alkaline Phosphatase 774 H, Total Protein 6.8, Albumin 3.8, Globulin 3.0, Albumin/Globulin Ratio 1.3, Acetaminophen < 10 L, Monoscreen Negative 08/15/24 14:05: Lactate 1.0 I & O for Last 24 hours: Intake & Output 08/12/24 08/13/24 08/14/24/27/25 23:59 23:59 23:59 23:59 Weight 90.718 kg Constitutional Constitutional: no acute distress *Routine HEENT Exam Head: Present normocephalic Eye: Present EOMI, PERRL and conjunctival icterus ENT: Present mucous membranes moist *Routine Neck Exam Neck: Present supple; Absent lymphadenopathy *Routine Respiratory Exam Respiratory: Present CTA bilaterally *Routine Cardiovascular Exam Cardiovascular: Present RRR *Routine Abdominal Exam Abdominal: Present soft and normoactive bowel sounds; Absent tenderness *Routine Rectal Exam Rectal:: deferred *Routine Genitalia Exam Genitalia:: deferred *Routine Extremities Exam Extremities: Absent cyanosis, clubbing or edema *Routine Skin Exam Skin: Present warm and jaundice (Mild jaundice); Absent rash *Routine Neurological Exam Neurological: Present alert and oriented X3 Assessment and Plan *Assessment and plan (1) Obstructive jaundice due to malignant neoplasm: Status: Acute Category: Medical Code(s): K83.1 - Obstruction of bile duct; C80.1 - Malignant (primary) neoplasm, unspecified (2) Mass of head of pancreas: Status: Acute Category: Medical Code(s): K86.89 - Other specified diseases of pancreas (3) Unintentional weight loss of 10% body weight within 6 months: Status: Acute Category: Medical Code(s): R63.4 - Abnormal weight loss (4) HTN (hypertension): Status: Acute Qualifiers: Hypertension type: primary hypertension Qualified Code(s): I10 - Essential (primary) hypertension Category: Medical Code(s): I10 - Essential (primary) hypertension (5) HLD (hyperlipidemia): Status: Chronic Qualifiers: Hyperlipidemia type: mixed hyperlipidemia Qualified Code(s): E78.2 - Mixed hyperlipidemia Category: Medical Code(s): E78.5 - Hyperlipidemia, unspecified (6) BPH (benign prostatic hyperplasia): Status: Acute Category: Medical Code(s): N40.0 - Benign prostatic hyperplasia without lower urinary tract symptoms Plan Patient is a 79-year-old male with history of BPH and GERD. Presented to the ER due to abnormal labs. Has had weight loss that is unintentional, fatigue, and developed jaundice with dark urine. Workup in the ER concerning for transaminitis with CT showing new finding of pancreatic mass. Highly suspicious for cancer. Discussed case with ER physician, request admission for GI consult in the morning, serial labs, further management with possible ERCP. I agreed to admit for further management. Problems addressed as follows: Unintentional weight loss, jaundice, pancreatic mass -Per my review of CT, has obvious mass in the pancreas. Highly suspicious for cancer. Noted to have some biliary dilatation. -Discussed case with GI, plan for ERCP in the morning. -Will obtain CEA, CA 19-9. Liver enzymes elevated with bilirubin 4.8, AST 324, alk phos 774. Repeat CBC, CMP, magnesium ordered for the morning. -Having no pain. -Continue pantoprazole for GERD symptoms BPH: Resume home finasteride 5 mg nightly and tamsulosin 0.4 mg nightly. -Will monitor for retention after sedation. Patient states that he sometimes has difficulty urinating after sedation for procedures. Mainly with general anesthesia however. Full code Holding anticoagulation in anticipation of procedure Regular diet, n.p.o. midnight
--- NOTE | 2024-08-15 16:30 | PC.NURSE ---
Geremias Mckeon PAC states Dr. Toussaint accepted pt for admission. House notified for bed assignment.
[2024-08-15 16:39] LABS: Ethyl Alcohol < 10 mg/dl (0-10)
[2024-08-15 17:06] LABS: Lipase 26 U/L (23-300); Magnesium 1.9 mg/dl (1.6-2.3)
[2024-08-15 17:17] LABS: NT Pro Brain Natriuretic Pep. 283 pg/mL (0-450)
[2024-08-15 17:24] LABS: Procalcitonin 0.242 ng/mL (0.0-2.0)
--- NOTE | 2024-08-15 17:31 | PC.NURSE ---
Attempted to call report, nurse is unavailable to receive at this time. Left message to return call.
[2024-08-15 17:54] LABS: HIV Combo NEGATIVE (Negative)
[2024-08-15 17:57] VITALS: BP 156/78; PULSE 60; RESP 18; TEMP 36.4; O2SAT 98; BMI 25.0
[2024-08-15 18:04] LABS: Hepatitis C Ab Qual. W/ RFX NEGATIVE (Negative)
[2024-08-15 18:30] VITALS: BP 104/60; PULSE 62; RESP 18; TEMP 36.9
[2024-08-15 20:00] VITALS: BP 141/74; PULSE 56; RESP 18; TEMP 36.9; O2SAT 98
[2024-08-15] MEDS: TAMSULOSIN 0.4MG CAPSULE 0.4 MG PO (20:35)
[2024-08-15] MEDS: PANTOPRAZOLE 40MG TABLET 40 MG PO (20:35)
[2024-08-15 21:18] LABS: Microscopic, Urine URINE MICROSCOPIC (MICROSCOPIC)
[2024-08-15 21:44] LABS: Appearance,Urine CLEAR (Clear); Blood, Urine Negative (Negative); Color,Urine YELLOW (Yellow); Glucose,Urine (UA) Negative (Negative); Ketones,Urine Negative (Negative); Leukocyte Esterase,Urine Negative (Negative); Nitrate,Urine Negative (Negative); Protein,Urine Negative (Negative); Specific Gravity, Urine 1.015 (1.005-1.030)
[2024-08-15 22:26] LABS: Bilirubin,Urine 2+ (Negative)
[2024-08-16] VITALS (15 sets, daily range): BP systolic 140–175; BP diastolic 63–85; PULSE 54–67; RESP 16–20; TEMP 36.2–36.6; O2SAT 96–98; BMI 25.6
--- NOTE | 2024-08-16 | FL_ITS ---
FINAL REPORT CLINICAL HISTORY: ERCP IN OR FT 2:03 74.65 mGy FINDINGS: FLUOROSCOPY LESS THAN 1 HOUR HISTORY: Fluoroscopy guidance. Fluoroscopic guidance was provided for ERCP. A single spot film was obtained. A total of 2:03 minutes of fluoroscopy time were used. Total DAP: 74.65 mGy IMPRESSION: As above. Reviewed, Interpreted and Dictated by Frederick Yoder MD Transcribed by Jordyn Gage Authenticated and [facility]
[2024-08-16 01:26] LABS: Bacteria,Urine Trace /lpf; WBC,Urine Occasional #/hpf (0-3)
--- NOTE | 2024-08-16 04:46 | PC.NURSE ---
Pt A&OX4 and has tolerated room air. Lung sounds clear and bowel sounds active. Pt has remained NPO since midnight awaiting GI consult. He has ambulated room independently. No complaints at this time, call light within reach.
[2024-08-16 05:17] LABS: HBsAg Screen Negative (Negative); HCV Ab Non Reactive (Non Reactive); Hep A Ab, IGM Negative (Negative); Hep B Core Ab, IgM Negative (Negative)
[2024-08-16 06:45] LABS: Basophils % 0.4 % (0.1-2.0); Eosinophils # 0.2 K/mm3 (0.0-0.4); Eosinophils % 2.3 % (0.1-12.0); Hematocrit 31.9 % (42.0-52.0); Hemoglobin 10.9 g/dL (14.1-18.0); Lymphocytes # 1.1 K/mm3 (0.7-4.5); Mean Corpuscular HGB Conc 34.2 g/dL (31.8-35.4); Mean Corpuscular Hemoglobin 30.8 pg (27.0-31.2); Mean Corpuscular Volume 90.1 fl (80-94); Mean Platelet Volume 11.7 fl (7.4-10.4); Monocytes # 0.7 K/mm3 (0.1-1.0); Neutrophils # 5.1 K/mm3 (1.8-7.8); Platelet Count 233 K/mm3 (142-424); Red Blood Count 3.54 M/mm3 (4.60-6.20); White Blood Count 7.1 K/mm3 (4.8-10.8)
[2024-08-16 06:57] LABS: Alanine Aminotransferase 363 U/L (12-78); Anion Gap 10.6 mEq/L (5-15); Aspartate Amino Transferase 293 U/L (17-59); Bilirubin,Total 4.7 mg/dl (0.2-1.3); Blood Urea Nitrogen 12 mg/dl (9-20); Calcium 8.4 mg/dl (8.4-10.2); Carbon Dioxide 25 mmol/L (22.0-30.0); Chloride 106 mmol/L (98-107); Creatinine Clearance Estimated 77 mL/min (50-200); Estimated Glomerular Filt Rate 109 ml/min (>60); GFR (African American) 132 ML/MIN (>60); Glucose 103 mg/dl (74-100); Magnesium 1.8 mg/dl (1.6-2.3); Potassium 3.6 mmoL/L (3.5-5.1); Sodium 138 mmol/L (136-145)
[2024-08-16 06:58] LABS: Albumin Level 3.2 g/dl (3.5-5.0); Albumin/Globulin Ratio 1.2 (1.1-1.8); Alkaline Phosphatase 767 U/L (38-126); Chol/HDL Ratio 6.1 (1-3.5); Cholesterol 153 mg/dl (140-200); Globulin 2.7 g/dL (1.3-3.2); HDL Cholesterol 25 mg/dl (40-60); Total Protein,Serum 5.9 g/dl (6.3-8.2); Triglycerides 94 mg/dl (30-150); VLDL Cholesterol 19 mg/dL (0-40)
[2024-08-16 07:08] LABS: Direct LDL Cholesterol 84.79 mg/dL (100-129)
--- NOTE | 2024-08-16 08:00 | P.CONS_ITS ---
History of Present Illness *Admission Date: 08/15/24 *History of present illness: Mr. Locke is a 79-year-old gentleman who is admitted with jaundice and pancreatic mass. He is a known patient of mine and recently had colonoscopy with me on 05/30/2024. At that time he had 1 small benign ascending polyp but was otherwise normal. At that time he had reported a 50 pound intentional weight loss over the last year. He does state that over the last couple of months he has had an additional 10 pounds of unintentional weight loss. He also states that over the last 4 to 6 weeks he has had some indigestion/upper abdominal discomfort, nausea and loss of appetite. 3 to 4 weeks ago, he began noticing darkened urine and more recently has had some acholic stools. He did have lab work with his PCP (Dr. Kaplan) yesterday and then was sent to the emergency room because of his jaundice. The patient did have labs showing total bilirubin 4.7, AST 293, ALT 363, alkaline phosphatase 767. His lipase was normal at 26. The patient's hemoglobin hematocrit have declined some and further with hydration. CT imaging yesterday showed a mass in the head of the pancreas that was 3.5 cm in diameter with intra and extrahepatic biliary ductal dilation. There was also obstruction of the duct and the uncinate process of the pancreas. There was no evident involvement of the SMA or vessels or any lymphadenopathy. The patient reports no alcohol or tobacco. He reports no family history of pancreatic cancer. His mother had breast cancer. [facility] Disclaimer: The information contained in this section may have been updated after the patient was seen, as this information can be updated by other users. 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 Mild persistent asthma Allergic rhinitis Dyspnea on exertion Diffusion capacity of lung (dl), decreased Asthma Restrictive lung disease Allergic rhinitis, unspecified Family history of asthma Smoking history Dyspnea on exertion CAD (coronary artery disease) HLD (hyperlipidemia) HTN (hypertension) Dyspnea Sinus bradycardia Abnormal stress ECG Surgical History H/O colonoscopy History of lumbar surgery History of bilateral inguinal hernia repair History of cholecystectomy History of surgery on arm Family History Mother Hypertension Cancer Father Hypertension Social History Smoking Status: Unknown if ever smoked second hand exposure: No alcohol intake: never substance use type: denies use current occupational status: retired Travel in the last 8 weeks: None household members: spouse housing: house current occupational exposures/hazards: No caffeine: Yes Have you lived/traveled outside US in past 30 days?: No Contact w/someone who lives/traveled outside US past 30 days?: No Exposure to someone with infectious disease in past 14 days?: No Do you have a fever (greater than 100.4 F or 38 C)?: No Have you tested positive for COVID-19: No Exposed to someone with COVID-19 in past 14 days?: No Do you have a sore throat?: No Do you have a cough?: No Do you have any weakness?: No Do you have any diarrhea?: No Are you experiencing any unusual bleeding?: No Do you have any muscle aches/pain?: No Do you have any abdominal pain?: No Are you experiencing loss of taste or smell?: No Meds Home Medications and Allergies Home Medications ?Medication ?Instructions ?Recorded ?Confirmed ?Type aspirin 81 mg tablet,delayed 81 mg PO DAILY Heart disease 02/21/21 08/04/24 History release clobetasol 0.05 % topical ointment 1 applic topical BID 30 days #30 08/19/23 08/04/24 Rx grams acyclovir 800 mg tablet 800 mg PO 5XD #60 tabs 10/07/23 08/04/24 Rx finasteride 5 mg tablet See Rx Instructions .Route 06/08/24 08/04/24 Rx .COMPLEX #90 tabs omeprazole 40 mg capsule,delayed 40 mg PO DAILY stomach 90 days #90 07/07/24 08/04/24 Rx release caps tamsulosin 0.4 mg capsule See Rx Instructions .Route 07/21/24 08/04/24 Rx .COMPLEX #90 caps New Prescriptions to Start Prescriptions: Allergies Allergy/AdvReac Type Severity Reaction Status Date / Time [id number] Reductase AdvReac Mild Joint Pain Verified 08/04/24 15:00 Inhibitor Exam (Inpt) Vital signs and Labs for Last 24 Hours: Temp Pulse Resp BP Pulse Ox O2 Del Method 98.4 F 56 L 18 141/74 H 98 Room Air 08/15/24 20:00 08/15/24 20:00 08/15/24 20:00 08/15/24 20:00 08/15/24 20:00 08/16/24 06:43 Laboratory Results - last 24 hr 08/15/24 13:50: WBC 7.2, RBC 3.65 L, Hgb 11.4 L, Hct 33.6 L, MCV 92.1, MCH 31.2, MCHC 33.9, RDW 15.0, Plt Count 244, MPV 11.6 H, Neut % (Auto) 76.6, Lymph % (Auto) 11.9, [place] % (Auto) 8.9, Eos % (Auto) 1.4, Baso % (Auto) 0.6, Neut # (Auto) 5.5, Lymph # (Auto) 0.9, [place] # (Auto) 0.6, Eos # (Auto) 0.1, Baso # (Auto) 0.0, PT 12.0, INR 1.10, APTT 23.7, Sodium 137, Potassium 4.3, Chloride 103, Carbon Dioxide 25, Anion Gap 13.3, BUN 15, Creatinine 0.70, Estimated Creat Clear 77, Estimated GFR 109, Est GFR ( Amer) 132, Glucose 147 H, Hemoglobin A1c 5.0, Calcium 8.6, Magnesium 1.9, Total Bilirubin 4.8 H, AST 324 H*, ALT 403 H*, Alkaline Phosphatase 774 H, NT-Pro-B Natriuret Pep 283, Total Protein 6.8, Albumin 3.8, Globulin 3.0, Albumin/Globulin Ratio 1.3, Lipase 26, Procalcitonin 0.242, Acetaminophen < 10 L, Plasma/Serum Alcohol < 10, Hepatitis A IgM Ab Negative, Hep Bs Antigen Negative, Hep B Core IgM Ab Negative, Hepatitis C Antibody Non reactive, HCV Ab [place] w/Rflx PCR Qn Negative, HCV RNA PCR Test Info Comment, Monoscreen Negative, HIV Ag/Ab Combo Qual Negative 08/15/24 14:05: Lactate 1.0 08/15/24 20:55: Urine Color Yellow, Urine Appearance Clear, Urine pH 6.0, Ur Specific [place] 1.015, Urine Protein Negative, Urine Glucose (UA) Negative, Urine Ketones Negative, Urine Blood Negative, Urine Nitrate Negative, Urine Bilirubin 2+ A, Urine Urobilinogen 2.0, Ur Leukocyte Esterase Negative, Urine RBC None, Urine WBC Occasional, Ur Squamous Epith Cells None, Urine Bacteria Trace 08/16/24 05:57: WBC 7.1, RBC 3.54 L, Hgb 10.9 L, Hct 31.9 L, MCV 90.1, MCH 30.8, MCHC 34.2, RDW 15.0, Plt Count 233, MPV 11.7 H, Neut % (Auto) 72.0, Lymph % (Auto) 15.0, [place] % (Auto) 10.0 H, Eos % (Auto) 2.3, Baso % (Auto) 0.4, Neut # (Auto) 5.1, Lymph # (Auto) 1.1, [place] # (Auto) 0.7, Eos # (Auto) 0.2, Baso # (Auto) 0.0, Sodium 138, Potassium 3.6, Chloride 106, Carbon Dioxide 25, Anion Gap 10.6, BUN 12, Creatinine 0.70, Estimated Creat Clear 77, Estimated GFR 109, Est GFR ( Amer) 132, Glucose 103 H D, Calcium 8.4, Magnesium 1.8, Total Bilirubin 4.7 H, AST 293 H, ALT 363 H*, Alkaline Phosphatase 767 H, Total Protein 5.9 L, Albumin 3.2 L D, Globulin 2.7, Albumin/Globulin Ratio 1.2, Triglycerides 94, Cholesterol 153, LDL Cholesterol Direct 84.79 L, VLDL Cholesterol 19, HDL Cholesterol 25 L, Cholesterol/HDL Ratio 6.1 H I & O for Labs for Last 24 Hours: Intake & Output 08/13/24 08/14/24 08/15/24 08/16/24 23:59 23:59 23:59 23:59 Intake Total 300 / 300 Output Total 0 / 0 Balance 0 / 300 300 / 300 Weight 195 lb 4 oz 199 lb 12.8 oz Constitutional: no acute distress Comment:: Mildly icteric sclera Results Labs 08/16/24 05:57 08/16/24 05:57 Labs: Laboratory Results - last 24 hr 08/15/24 13:50: WBC 7.2, RBC 3.65 L, Hgb 11.4 L, Hct 33.6 L, MCV 92.1, MCH 31.2, MCHC 33.9, RDW 15.0, Plt Count 244, MPV 11.6 H, Neut % (Auto) 76.6, Lymph % (Auto) 11.9, [place] % (Auto) 8.9, Eos % (Auto) 1.4, Baso % (Auto) 0.6, Neut # (Auto) 5.5, Lymph # (Auto) 0.9, [place] # (Auto) 0.6, Eos # (Auto) 0.1, Baso # (Auto) 0.0, PT 12.0, INR 1.10, APTT 23.7, Sodium 137, Potassium 4.3, Chloride 103, Carbon Dioxide 25, Anion Gap 13.3, BUN 15, Creatinine 0.70, Estimated Creat Clear 77, Estimated GFR 109, Est GFR ( Amer) 132, Glucose 147 H, Hemoglobin A1c 5.0, Calcium 8.6, Magnesium 1.9, Total Bilirubin 4.8 H, AST 324 H*, ALT 403 H*, Alkaline Phosphatase 774 H, NT-Pro-B Natriuret Pep 283, Total Protein 6.8, Albumin 3.8, Globulin 3.0, Albumin/Globulin Ratio 1.3, Lipase 26, Procalcitonin 0.242, Acetaminophen < 10 L, Plasma/Serum Alcohol < 10, Hepatitis A IgM Ab Negative, Hep Bs Antigen Negative, Hep B Core IgM Ab Negative, Hepatitis C Antibody Non reactive, HCV Ab [place] w/Rflx PCR Qn Negative, HCV RNA PCR Test Info Comment, Monoscreen Negative, HIV Ag/Ab Combo Qual Negative 08/15/24 14:05: Lactate 1.0 08/15/24 20:55: Urine Color Yellow, Urine Appearance Clear, Urine pH 6.0, Ur Specific [place] 1.015, Urine Protein Negative, Urine Glucose (UA) Negative, Urine Ketones Negative, Urine Blood Negative, Urine Nitrate Negative, Urine Bilirubin 2+ A, Urine Urobilinogen 2.0, Ur Leukocyte Esterase Negative, Urine RBC None, Urine WBC Occasional, Ur Squamous Epith Cells None, Urine Bacteria Trace 08/16/24 05:57: WBC 7.1, RBC 3.54 L, Hgb 10.9 L, Hct 31.9 L, MCV 90.1, MCH 30.8, MCHC 34.2, RDW 15.0, Plt Count 233, MPV 11.7 H, Neut % (Auto) 72.0, Lymph % (Auto) 15.0, [place] % (Auto) 10.0 H, Eos % (Auto) 2.3, Baso % (Auto) 0.4, Neut # (Auto) 5.1, Lymph # (Auto) 1.1, [place] # (Auto) 0.7, Eos # (Auto) 0.2, Baso # (Auto) 0.0, Sodium 138, Potassium 3.6, Chloride 106, Carbon Dioxide 25, Anion Gap 10.6, BUN 12, Creatinine 0.70, Estimated Creat Clear 77, Estimated GFR 109, Est GFR ( Amer) 132, Glucose 103 H D, Calcium 8.4, Magnesium 1.8, Total Bilirubin 4.7 H, AST 293 H, ALT 363 H*, Alkaline Phosphatase 767 H, Total Protein 5.9 L, Albumin 3.2 L D, Globulin 2.7, Albumin/Globulin Ratio 1.2, Triglycerides 94, Cholesterol 153, LDL Cholesterol Direct 84.79 L, VLDL Cholesterol 19, HDL Cholesterol 25 L, Cholesterol/HDL Ratio 6.1 H Assessment and Plan *Assessment and plan (1) Pancreatic mass: Status: Acute Category: Medical Code(s): K86.89 - Other specified diseases of pancreas (2) Mass of head of pancreas: Status: Acute Category: Medical Code(s): K86.89 - Other specified diseases of pancreas (3) Obstructive jaundice due to malignant neoplasm: Status: Acute Category: Medical Code(s): K83.1 - Obstruction of bile duct; C80.1 - Malignant (primary) neoplasm, unspecified Plan 1. Obstructive jaundice with pancreatic mass (3.5 cm) and no obvious involvement of SMA/vessels or lymphadenopathy. It will be important to assess disease extent and would prefer multiphase contrast ( pancreatic protocol ) CT of the abdomen and pelvis as the next step to assess resectability. We could also consider gadolinium enhanced MRI but both would provide similar assessment regarding resectability and metastatic spread. ERCP will be performed subsequently for decompression. The stent should not be placed until adequate imaging because the artifact of the stent can sometimes mask or produced inflammatory changes that may be indistinguishable from tumor. At the time of ERCP, biopsies, brushings and stent will be placed. I will obtain results of CA 19-9. The patient will benefit from pancreatic digestive enzyme treatment (Creon 36) subsequent to ERCP when he begins oral intake.
[2024-08-16 08:13] LABS: CA 19-9 243 U/mL (0-35); CEA 3.4 ng/mL (0.0-4.7)
--- NOTE | 2024-08-16 08:26 | MR_ITS ---
FINAL REPORT CLINICAL HISTORY: Assess resectability of pancreatic cancer 20 ML [place]OH[place] COMPARISON: 08/15/2024 FINDINGS: Multiplanar MR imaging of the abdomen was performed using the MRCP protocol. 3-D images were also obtained and reviewed. There is significant intra and extrahepatic biliary ductal dilatation. Common duct measures up to 1.5 cm in diameter. This is well-seen on the MRCP images. There is a mass in the head of the pancreas measuring 3.5 cm in diameter. On the postinfusion images, this mass demonstrates an enhancing peripheral margin with hypoenhancing central region. This is well-seen on image 52 of series 26. The mass appears to obstruct the pancreatic duct. The pancreatic duct is abnormally enlarged measuring up to 9 mm in diameter. There are also dilated ducts within the uncinate process. No discrete liver lesion is identified. The spleen, nose and kidneys are unremarkable. IMPRESSION: Mass in head of pancreas with biliary and pancreatic ductal obstruction highly concerning for neoplasia. Recommend ERCP. Reviewed, Interpreted and Dictated by Frederick Yoder MD Transcribed by Ansley Duran Authenticated and [facility]
--- NOTE | 2024-08-16 08:56 | HMH.PHAINT1 ---
Pharmacy Intervention Comments: HOME MEDICATION LIST VERIFIED USING LIST FROM OUTPATIENT PHARMACY AND PT INTERVIEW
[2024-08-16] MEDS: GADOTERIDOL INJ 20ML SYRINGE 20 ML IV (10:54)
[2024-08-16] MEDS: SODIUM CHLORIDE 0.9% 50ML BAG 25 ML IV (10:54)
--- NOTE | 2024-08-16 12:43 | EXP.ANES.CKL ---
[facility] Disclaimer: The information contained in this section may have been updated after the patient was seen, as this information can be updated by other users. 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 Mild persistent asthma Allergic rhinitis Dyspnea on exertion Diffusion capacity of lung (dl), decreased Asthma Restrictive lung disease Allergic rhinitis, unspecified Family history of asthma Smoking history Dyspnea on exertion CAD (coronary artery disease) HLD (hyperlipidemia) HTN (hypertension) Dyspnea Sinus bradycardia Abnormal stress ECG Surgical History H/O colonoscopy History of lumbar surgery History of bilateral inguinal hernia repair History of cholecystectomy History of surgery on arm Family History Mother Hypertension Cancer Father Hypertension Social History Smoking Status: Unknown if ever smoked second hand exposure: No alcohol intake: never substance use type: denies use current occupational status: retired Travel in the last 8 weeks: None household members: spouse housing: house current occupational exposures/hazards: No caffeine: Yes Have you lived/traveled outside [place] in past 30 days?: No Contact w/someone who lives/traveled outside US past 30 days?: No Exposure to someone with infectious disease in past 14 days?: No Do you have a fever (greater than 100.4 F or 38 C)?: No Have you tested positive for COVID-19: No Exposed to someone with COVID-19 in past 14 days?: No Do you have a sore throat?: No Do you have a cough?: No Do you have any weakness?: No Do you have any diarrhea?: No Are you experiencing any unusual bleeding?: No Do you have any muscle aches/pain?: No Do you have any abdominal pain?: No Are you experiencing loss of taste or smell?: No [facility] Anesthesia Checklist Patient Identification Patient Identification: Arm Band and Verbal (Name & ) Structural Data Admitted From: Inpatient ([id number]) Planned Operative Procedure/s: ERCP Consent for Planned Operative Procedure(s) Verified: Yes Verified Documents: Surgical Consent and History and Physical NPO Status Verified Time NPO: 21:00 Chart Verification Results Verified: CBC, BMP, ECG and Chest Xray Additional verifications Patient : No Anesthesia Reactions: Yes (Severe urinary retention requiring post-op Jackson catheter) Cardiovascular Assessment Heart Sounds: S1 & S2 Pulse Rhythm: Irregular Peripheral Edema: No Airway Assessment Mallampati Score:: Class II C-Spine Mobility Assessed: Yes (Limited extension) TMJ Mobility Assessed: Yes Dentition: Good Dentition (Nothing loose per pt.) Neurological Assessment Level of Consciousness: Awake, Alert, Appropriate and Follows Commands Hx Seizures: No Numbness or tingling in extremities: No Anesthesia Plan Anesthesia Risk discussed: Yes Anesthesia Plan: Verified ASA Class: III Anesthesia Type: General
--- NOTE | 2024-08-16 13:39 | HMH.PROCNOTE ---
[facility] Procedure Note Date: 08/16/24 Time: 14:27 Procedure Note:: ERCP procedure Report: Endoscopic retrograde cholangiopancreatography with biliary sphincterotomy, brushings, biopsies and SEMS nitinol biliary stent placement Endoscopist: Luis Hadley II, MD Referring Physician: Jasper Kaplan MD Date of Procedure: August 16, 2024 Equipment: Olympus 180 side viewing endoscope duodenoscope Sedation: MAC sedation Indication: Mr. Locke is a 79-year-old gentleman who is here for diagnostic/therapeutic ERCP. He is admitted with jaundice and pancreatic mass. He is a known patient of mine and recently had colonoscopy with pa on 05/30/2024. At that time he had 1 small benign ascending polyp but was otherwise normal. At that time he had reported a 50 pound intentional weight loss over the last year. He does state that over the last couple of months he has had an additional 10 pounds of unintentional weight loss. He also states that over the last 4 to 6 weeks he has had some indigestion/upper abdominal discomfort, nausea and loss of appetite. 3 to 4 weeks ago, he began noticing darkened urine and more recently has had some acholic stools. He did have lab work with his PCP (Dr. Kaplan) yesterday and then was sent to the emergency room because of his jaundice. The patient did have labs showing total bilirubin 4.7, AST 293, ALT 363, alkaline phosphatase 767. His lipase was normal at 26. The patient's hemoglobin hematocrit have declined some and further with hydration. CT imaging yesterday showed a mass in the head of the pancreas that was 3.5 cm in diameter with intra and extrahepatic biliary ductal dilation. There was also obstruction of the duct and the uncinate process of the pancreas. There was no evident involvement of the SMA or vessels or any lymphadenopathy. The patient reports no alcohol or tobacco. He reports no family history of pancreatic cancer. His mother had breast cancer. Repeat MRCP today and comparison with CT yesterday does not show any encasement of the SMA or any worrisome lymphadenopathy. There is some mild periaortic lymphadenopathy. Procedure: Prior to the procedure, a history and physical exam was performed, and patient's medications and allergies were reviewed. The risks, benefits and alternatives of the sedation and procedure were discussed with the patient. All questions were answered and informed consent was obtained. The patient was brought to the fluoroscopic radiology room. Patient identification and proposed procedure were verified by the physician and the nurse. The patient was placed in a swimmer's position between left lateral decubitus and prone position and the scope was passed under direct vision. Throughout the procedure, the patient's blood pressure, pulse, and oxygen saturations were monitored continuously. The ERCP was accomplished without difficulty. The patient tolerated the procedure well. Findings: The duodenoscope was passed directly into the upper esophagus and advanced to the second portion of the duodenum. The ampulla was visualized and was normal with no mass effect. The common bile duct was selectively cannulated with a guidewire. The cholangiogram showed a 1.5 cm distal bile duct stricture with proximal common bile duct and intrahepatic biliary ductal dilation. The bile duct was maximally 15 to 16 mm in diameter. The stricture was abrupt and not tapering. Next, a biliary sphincterotomy was performed. There was extravasation of bile. Next, brushings were obtained by using guided brush with fluoroscopic observance with brushings done through the stricture. Next, a standard biopsy forceps was placed through the duodenoscope channel and advanced into the biliary system with 2 separate sets of biopsies obtained. Lastly, a 10 mm diameter/60 mm length nitinol fully covered SEMS stent was deployed across the stricture with excellent hourglass appearance on fluoroscopy and excellent biliary drainage. Impression: 1. Distal CBD stricture with biliary obstruction?probable malignant stricture from pancreatic adenocarcinoma?status post biopsies/brushings and SEMS fully covered biliary stent placement with decompression Plan: I will follow-up the biopsies and brushings. On CT and MRI there is no exclusion criteria (no evidence of lymphadenopathy or encasement of vessels). I will speak with Dr. Sandeep Hudson MD (surgical oncologist at the [facility]). I will begin diet and enzyme replacement (Creon).
--- NOTE | 2024-08-16 14:26 | EXP.ANES.I ---
[facility] Anesthesia Record Part I Anesthesia Record I Intake, IV Amount: 400 Hydration: Adequate Estimated blood loss (mL): 0 Urine output (mL): 0 Blood Products used (#): none Blood Pressure: 168/85 SaO2: 98 Pulse Rate: 57 Airway Patency: Patent Respiratory Rate: 16 Temperature: 97.1 F Patient is:: Drowsy and Stable Stable to PACU at:: 14:20
[2024-08-16 15:06] LABS: Microscopic,Cath URINE MICROSCOPIC (MICROSCOPIC)
[2024-08-16 15:08] LABS: Appearance,Urine/Cath CLEAR (Clear); Blood, Urine/Cath Negative (Negative); Color,Urine/Cath YELLOW (Yellow); Glucose,Urine/Cath (UA) TRACE (Negative); Ketones,Urine/Cath 1+ (Negative); Leukocyte Esterase,Cath Negative (Negative); Nitrate,Cath Negative (Negative); Protein,Urine/Cath TRACE (Negative); Urobilinogen,Cath >=8.0 EU/dl (0.2)
[2024-08-16 15:10] LABS: Bilirubin,Cath 3+ (Negative)
[2024-08-16 15:11] LABS: Bacteria,Urine/Cath TRACE /lpf; CA Oxalate Crystals,Ur/Cath Trace /lpf; RBC,Urine/Cath Occasional # /hpf (0-3); Squamous Epithelial Ur./Cath Occasional #/hpf (0-5); WBC,Urine/Cath Occasional #/hpf (0-3)
[2024-08-16] MEDS: LIPASE/PROTEASE/AMYLASE 1 EACH CAPSULE.DR 2 EACH PO (15:47)
--- NOTE | 2024-08-16 17:26 | PC.NURSE ---
pt resting supine in bed with family at bedside. a&ox4. tolerating diet well at this time. no complaints of n/v. pt has urinated small amounts of leander urine. no complaints of pain. 1 stent placed during ERCP this afternoon. vss. no needs or complaints at this time. call light within reach.
[2024-08-16] MEDS: PANTOPRAZOLE 40MG TABLET 40 MG PO (20:21)
[2024-08-16] MEDS: TAMSULOSIN 0.4MG CAPSULE 0.4 MG PO (20:21)
[2024-08-16] MEDS: FINASTERIDE 5MG TABLET 5 MG PO (20:22)
--- NOTE | 2024-08-16 22:32 | EXP.PN ---
Subjective *Date: 08/26/24 *Time: 17:59 Interval history: Patient feels well after ERCP with stent placement today. Biopsies were obtained. Will need close follow-up with oncology, GI with anticipated discharge in the morning if patient continues to feel well. Exam Data for Last 24 hours Vital signs and Labs for Last 24 Hours: Temp Pulse Resp BP Pulse Ox O2 Del Method 97.6 F 67 16 151/69 H 98 Room Air 08/16/24 20:00 08/16/24 20:00 08/16/24 20:00 08/16/24 20:00 08/16/24 20:00 08/16/24 21:00 Laboratory Results - last 24 hr 08/15/24 13:50: Hepatitis A IgM Ab Negative, Hep Bs Antigen Negative, Hep B Core IgM Ab Negative, Hepatitis C Antibody Non reactive, HCV RNA PCR Test Info Comment 08/15/24 16:25: Carcinoembryonic Ag 3.4, CA 19-9 Antigen 243 H 08/15/24 20:55: Urine RBC None, Urine WBC Occasional, Ur Squamous Epith Cells None, Urine Bacteria Trace 08/16/24 05:57: WBC 7.1, RBC 3.54 L, Hgb 10.9 L, Hct 31.9 L, MCV 90.1, MCH 30.8, MCHC 34.2, RDW 15.0, Plt Count 233, MPV 11.7 H, Neut % (Auto) 72.0, Lymph % (Auto) 15.0, [place] % (Auto) 10.0 H, Eos % (Auto) 2.3, Baso % (Auto) 0.4, Neut # (Auto) 5.1, Lymph # (Auto) 1.1, [place] # (Auto) 0.7, Eos # (Auto) 0.2, Baso # (Auto) 0.0, Sodium 138, Potassium 3.6, Chloride 106, Carbon Dioxide 25, Anion Gap 10.6, BUN 12, Creatinine 0.70, Estimated Creat Clear 77, Estimated GFR 109, Est GFR ( Amer) 132, Glucose 103 H D, Calcium 8.4, Magnesium 1.8, Total Bilirubin 4.7 H, AST 293 H, ALT 363 H*, Alkaline Phosphatase 767 H, Total Protein 5.9 L, Albumin 3.2 L D, Globulin 2.7, Albumin/Globulin Ratio 1.2, Triglycerides 94, Cholesterol 153, LDL Cholesterol Direct 84.79 L, VLDL Cholesterol 19, HDL Cholesterol 25 L, Cholesterol/HDL Ratio 6.1 H 08/16/24 13:40: Urine Color Yellow, Urine Appearance Clear, Urine pH 7.0, Ur Specific [place] 1.020, Urine Protein Trace, Urine Glucose (UA) Trace, Urine Ketones 1+, Urine Blood Negative, Urine Nitrate Negative, Urine Bilirubin 3+ A, Urine Urobilinogen >=8.0, Ur Leukocyte Esterase Negative, Urine RBC Occasional, Urine WBC Occasional, Ur Squamous Epith Cells Occasional, Calcium Oxalate Crystal Trace, Urine Bacteria Trace I & O for Last 24 hours: Intake & Output 08/13/24 08/14/24 08/15/24 08/16/24 23:59 23:59 23:59 23:59 Intake Total 700 / 700 Output Total 0 / 0 300 / 300 Balance 0 / 300 400 / 400 Weight 88.564 kg 90.628 kg Constitutional Constitutional: no acute distress Comments: Jaundiced. *Routine HEENT Exam Head: Present normocephalic Eye: Present EOMI and PERRL ENT: Present mucous membranes moist *Routine Neck Exam Neck: Present supple; Absent lymphadenopathy *Routine Respiratory Exam Respiratory: Present CTA bilaterally *Routine Cardiovascular Exam Cardiovascular: Present RRR *Routine Abdominal Exam Abdominal: Present soft and normoactive bowel sounds; Absent tenderness *Routine Extremities Exam Extremities: Absent cyanosis, clubbing or edema *Routine Skin Exam Skin: Present warm; Absent rash *Routine Neurological Exam Neurological: Present alert and oriented X3 Assessment and Plan *Assessment and plan (1) Obstructive jaundice due to malignant neoplasm: Status: Acute Category: Medical Code(s): K83.1 - Obstruction of bile duct; C80.1 - Malignant (primary) neoplasm, unspecified (2) Mass of head of pancreas: Status: Acute Category: Medical Code(s): K86.89 - Other specified diseases of pancreas (3) Unintentional weight loss of 10% body weight within 6 months: Status: Acute Category: Medical Code(s): R63.4 - Abnormal weight loss (4) HTN (hypertension): Status: Acute Qualifiers: Hypertension type: primary hypertension Qualified Code(s): I10 - Essential (primary) hypertension Category: Medical Code(s): I10 - Essential (primary) hypertension (5) HLD (hyperlipidemia): Status: Chronic Qualifiers: Hyperlipidemia type: mixed hyperlipidemia Qualified Code(s): E78.2 - Mixed hyperlipidemia Category: Medical Code(s): E78.5 - Hyperlipidemia, unspecified (6) BPH (benign prostatic hyperplasia): Status: Acute Category: Medical Code(s): N40.0 - Benign prostatic hyperplasia without lower urinary tract symptoms Constantine Locke is a 79-year-old male with history of BPH and GERD. Presented with weight loss that is unintentional, fatigue, and developed jaundice with dark urine. Workup in the ER concerning for transaminitis with CT showing new finding of pancreatic mass. Highly suspicious for cancer. Discussed case with ER physician, request admission for GI consult in the morning, serial labs, further management with possible ERCP. #Unintentional weight loss #Jaundice #Pancreatic head mass - Per my review of CT, has obvious mass in the pancreas. Unfortunately highly suspicious for cancer. Noted to have some biliary dilatation. CA-19 elevated to 243. - Discussed case with GI, s/p ERCP with stent placement and biopsies. Distal CBD stricture with biliary obstruction?probable malignant stricture from pancreatic adenocarcinoma?status post biopsies/brushings and SEMS fully covered biliary stent placement with decompression ? AST/ALT mildly improved to 293/305 today. Will continue to monitor. ? Both GI and I had extensive conversation with patient regarding pancreatic mass, which is likely a representation of a cancer. We will wait on biopsies, if they are positive he wishes to pursue cancer treatment at [facility]. GI has made a referral for him. -Having no pain. -Continue pantoprazole for GERD symptoms BPH: Resume home finasteride 5 mg nightly and tamsulosin 0.4 mg nightly. Full code Regular diet
[2024-08-16] MEDS: CALCIUM CARBONATE 500MG CHEWTAB 500 MG PO (23:29)
[2024-08-17] VITALS: BP 146/76; PULSE 60; RESP 16; TEMP 36.7; O2SAT 97
[2024-08-17 04:00] VITALS: BP 156/67; PULSE 56; RESP 16; TEMP 36.4; O2SAT 97; BMI 25.7
--- NOTE | 2024-08-17 04:46 | PC.NURSE ---
Pt A&OX4 and has tolerated room air. He has ambulated around the room independently. He did complain of acid reflux and was medicated per MAR. Currently resting in bed with call light within reach.
[2024-08-17] MEDS: LIPASE/PROTEASE/AMYLASE 1 EACH CAPSULE.DR 2 EACH PO ×2 (06:31→10:10)
[2024-08-17 07:00] LABS: Basophils % 0.2 % (0.1-2.0); Eosinophils # 0.1 K/mm3 (0.0-0.4); Eosinophils % 1.1 % (0.1-12.0); Hematocrit 32.8 % (42.0-52.0); Hemoglobin 11.3 g/dL (14.1-18.0); Lymphocytes # 1.4 K/mm3 (0.7-4.5); Lymphocytes % 14.8 % (10-50); Mean Corpuscular HGB Conc 34.5 g/dL (31.8-35.4); Mean Corpuscular Hemoglobin 31.5 pg (27.0-31.2); Mean Corpuscular Volume 91.4 fl (80-94); Mean Platelet Volume 11.9 fl (7.4-10.4); Monocytes # 0.8 K/mm3 (0.1-1.0); Monocytes % 8.6 % (1.7-9.3); Neutrophils # 7.3 K/mm3 (1.8-7.8); Neutrophils % 75.1 % (37.0-80.0); Platelet Count 234 K/mm3 (142-424); Red Blood Count 3.59 M/mm3 (4.60-6.20); Red Cell Distribution Width 15.1 % (11.5-17.5); White Blood Count 9.7 K/mm3 (4.8-10.8)
--- NOTE | 2024-08-17 07:18 | EXP.ANES.II ---
[facility] Anesthesia Record Part II Anesthesia Record Part II Discharge Time: 14:50 Destination: Surgical Day Care (OP Surgery) PACU nurse assessment reviewed?: Yes Patient Condition:: Good Anesthesia Complications:: None Swallowing reflex intact?: Yes Airway Patency: Patent Cyanosis?: No Blood Pressure: 163/74 SaO2: 96 Respiratory Rate: 16 Pulse Rate: 55 Temperature: 97.1 F Mental Status: Alert & Oriented Pain level:: 0 Nausea and/or vomitting:: None Intake, IV Amount: 0 Hydration: Adequate
[2024-08-17 07:20] VITALS: BP 163/74; PULSE 55; RESP 16; TEMP 36.2; O2SAT 96
[2024-08-17 07:21] LABS: Alanine Aminotransferase 305 U/L (12-78); Albumin Level 3.1 g/dl (3.5-5.0); Albumin/Globulin Ratio 1.2 (1.1-1.8); Alkaline Phosphatase 683 U/L (38-126); Anion Gap 10.7 mEq/L (5-15); Aspartate Amino Transferase 167 U/L (17-59); Bilirubin,Total 2.4 mg/dl (0.2-1.3); Blood Urea Nitrogen 12 mg/dl (9-20); Calcium 8.4 mg/dl (8.4-10.2); Carbon Dioxide 26 mmol/L (22.0-30.0); Chloride 105 mmol/L (98-107); Creatinine Clearance Estimated 77 mL/min (50-200); Estimated Glomerular Filt Rate 109 ml/min (>60); GFR (African American) 132 ML/MIN (>60); Globulin 2.6 g/dL (1.3-3.2); Glucose 109 mg/dl (74-100); Magnesium 1.8 mg/dl (1.6-2.3); Potassium 3.7 mmoL/L (3.5-5.1); Sodium 138 mmol/L (136-145); Total Protein,Serum 5.7 g/dl (6.3-8.2)
[2024-08-17 08:00] VITALS: BP 132/71; PULSE 56; RESP 16; TEMP 36.7; O2SAT 95
[2024-08-17] MEDS: BELLADONNA ALKALOIDS 60 ML ML PO (10:11)
[2024-08-17 11:52] VITALS: BP 163/68; PULSE 57; RESP 17; TEMP 37; O2SAT 97
--- NOTE | 2024-08-17 13:05 | P.DS_ITS ---
General Admission date:: 08/15/24 HPI HPI HPI: Mr. Locke is a 79-year-old gentleman who is admitted with jaundice and pancreatic mass. He is a known patient of mine and recently had colonoscopy with me on 05/30/2024. At that time he had 1 small benign ascending polyp but was otherwise normal. At that time he had reported a 50 pound intentional weight loss over the last year. He does state that over the last couple of months he has had an additional 10 pounds of unintentional weight loss. He also states that over the last 4 to 6 weeks he has had some indigestion/upper abdominal discomfort, nausea and loss of appetite. 3 to 4 weeks ago, he began noticing darkened urine and more recently has had some acholic stools. He did have lab work with his PCP (Dr. Kaplan) yesterday and then was sent to the emergency room because of his jaundice. The patient did have labs showing total bilirubin 4.7, AST 293, ALT 363, alkaline phosphatase 767. His lipase was normal at 26. The patient's hemoglobin hematocrit have declined some and further with hydration. CT imaging yesterday showed a mass in the head of the pancreas that was 3.5 cm in diameter with intra and extrahepatic biliary ductal dilation. There was also obstruction of the duct and the uncinate process of the pancreas. There was no evident involvement of the SMA or vessels or any lymphadenopathy. The patient reports no alcohol or tobacco. He reports no f amily history of pancreatic cancer. His mother had breast cancer. Hospital Course Hospital Course Hospital Course: Karlos Locke is a 79-year-old male with history of BPH and GERD. Presented with weight loss that is unintentional, fatigue, and developed jaundice with dark urine. Workup in the ER concerning for transaminitis with CT showing new finding of pancreatic mass. Highly suspicious for cancer. Discussed case with ER physician, request admission for GI consult in the morning, serial labs, further management with possible ERCP. #Unintentional weight loss #Jaundice #Pancreatic head mass - Per my review of CT, has obvious mass in the pancreas. Unfortunately highly suspicious for cancer. Noted to have some biliary dilatation. CA-19 elevated to 243. - Discussed case with GI, s/p ERCP with stent placement and biopsies. Distal CBD stricture with biliary obstruction?probable malignant stricture from pancreatic adenocarcinoma?status post biopsies/brushings and SEMS fully covered biliary stent placement with decompression ? AST/ALT mildly improved to 167/305 today. ? Both GI and I had extensive conversation with patient regarding pancreatic mass, which is likely a representation of a cancer. We will wait on biopsies, if they are positive he wishes to pursue cancer treatment at [facility]. GI has made a referral for him. GI started Creon to help with digestion. - Having no pain. - Continue pantoprazole for GERD symptoms. ? Will follow-up with GI within 1 week. Follow-up on biopsies. BPH: Resume home finasteride 5 mg nightly and tamsulosin 0.4 mg nightly. Total time spent on discharge: 32 minutes on chart review, counseling, documentation, and direct care with patient. Exam Data for Last 24 hours Vital signs and Labs for Last 24 Hours: Temp Pulse Resp BP Pulse Ox O2 Del Method 98.6 F 57 L 17 163/68 H 97 Room Air 08/17/24 11:52 08/17/24 11:52 08/17/24 11:52 08/17/24 11:52 08/17/24 11:52 08/17/24 11:52 Laboratory Results - last 24 hr 08/16/24 13:40: Urine Color Yellow, Urine Appearance Clear, Urine pH 7.0, Ur Specific Street 1.020, Urine Protein Trace, Urine Glucose (UA) Trace, Urine Ketones 1+, Urine Blood Negative, Urine Nitrate Negative, Urine Bilirubin 3+ A, Urine Urobilinogen >=8.0, Ur Leukocyte Esterase Negative, Urine RBC Occasional, Urine WBC Occasional, Ur Squamous Epith Cells Occasional, Calcium Oxalate Crystal Trace, Urine Bacteria Trace 08/17/24 06:05: WBC 9.7 D, RBC 3.59 L, Hgb 11.3 L, Hct 32.8 L, MCV 91.4, MCH 31.5 H, MCHC 34.5, RDW 15.1, Plt Count 234, MPV 11.9 H, Neut % (Auto) 75.1, Lymph % (Auto) 14.8, [place] % (Auto) 8.6, Eos % (Auto) 1.1, Baso % (Auto) 0.2, Neut # (Auto) 7.3, Lymph # (Auto) 1.4, [place] # (Auto) 0.8, Eos # (Auto) 0.1, Baso # (Auto) 0.0, Sodium 138, Potassium 3.7, Chloride 105, Carbon Dioxide 26, Anion Gap 10.7, BUN 12, Creatinine 0.70, Estimated Creat Clear 77, Estimated GFR 109, Est GFR ( Amer) 132, Glucose 109 H, Calcium 8.4, Magnesium 1.8, Total Bilirubin 2.4 H, AST 167 H D, ALT 305 H*, Alkaline Phosphatase 683 H, Total Protein 5.7 L, Albumin 3.1 L, Globulin 2.6, Albumin/Globulin Ratio 1.2 I & O for Last 24 hours: Intake & Output 08/14/24 08/15/24 08/16/24 08/17/24 23:59 23:59 23:59 23:59 Intake Total 700 / 950 610 / 610 Output Total 0 / 0 300 / 300 0 / 0 Balance 0 / 300 400 / 650 610 / 610 Weight 88.564 kg 90.628 kg 90.718 kg Constitutional Constitutional: no acute distress Comments: Jaundiced. *Routine HEENT Exam Head: Present normocephalic Eye: Present EOMI and PERRL ENT: Present mucous membranes moist *Routine Neck Exam Neck: Present supple; Absent lymphadenopathy *Routine Respiratory Exam Respiratory: Present CTA bilaterally *Routine Cardiovascular Exam Cardiovascular: Present RRR *Routine Abdominal Exam Abdominal: Present soft and normoactive bowel sounds; Absent tenderness *Routine Extremities Exam Extremities: Absent cyanosis, clubbing or edema *Routine Skin Exam Skin: Present warm; Absent rash *Routine Neurological Exam Neurological: Present alert and oriented X3 Results Data Completed and Pending Labs on day of discharge: Labs from last 24 hours 08/17/24 08/16/24 06:05 13:40 WBC 9.7 D RBC 3.59 L Hgb 11.3 L Hct 32.8 L MCV 91.4 MCH 31.5 H MCHC 34.5 RDW 15.1 Plt Count 234 MPV 11.9 H Neut % (Auto) 75.1 Lymph % (Auto) 14.8 [place] % (Auto) 8.6 Eos % (Auto) 1.1 Baso % (Auto) 0.2 Neut # (Auto) 7.3 Lymph # (Auto) 1.4 [place] # (Auto) 0.8 Eos # (Auto) 0.1 Baso # (Auto) 0.0 Sodium 138 Potassium 3.7 Chloride 105 Carbon Dioxide 26 Anion Gap 10.7 BUN 12 Creatinine 0.70 Estimated Creat Clear 77 Estimated GFR 109 Est GFR ( Amer) 132 Glucose 109 H Calcium 8.4 Magnesium 1.8 Total Bilirubin 2.4 H AST 167 H D ALT 305 H* Alkaline Phosphatase 683 H Total Protein 5.7 L Albumin 3.1 L Globulin 2.6 Albumin/Globulin Ratio 1.2 Urine Color Yellow Urine Appearance Clear Urine pH 7.[address] 1.020 Urine Protein Trace Urine Glucose (UA) Trace Urine Ketones 1+ Urine Blood Negative Urine Nitrate Negative Urine Bilirubin 3+ A Urine Urobilinogen >=8.0 Ur Leukocyte Esterase Negative Urine RBC Occasional Urine WBC Occasional Ur Squamous Epith Cells Occasional Calcium Oxalate Crystal Trace Urine Bacteria Trace DS: Diagnosis Discharge Diagnosis (1) Obstructive jaundice due to malignant neoplasm: Status: Acute Code(s): K83.1 - Obstruction of bile duct; C80.1 - Malignant (primary) neoplasm, unspecified (2) Mass of head of pancreas: Status: Acute Code(s): K86.89 - Other specified diseases of pancreas (3) Unintentional weight loss of 10% body weight within 6 months: Status: Acute Code(s): R63.4 - Abnormal weight loss (4) HTN (hypertension): Status: Acute Code(s): I10 - Essential (primary) hypertension Qualifiers: Hypertension type: primary hypertension Qualified Code(s): I10 - Essential (primary) hypertension (5) HLD (hyperlipidemia): Status: Chronic Code(s): E78.5 - Hyperlipidemia, unspecified Qualifiers: Hyperlipidemia type: mixed hyperlipidemia Qualified Code(s): E78.2 - Mixed hyperlipidemia (6) BPH (benign prostatic hyperplasia): Status: Acute Code(s): N40.0 - Benign prostatic hyperplasia without lower urinary tract symptoms Meds Home Medications and Allergies Home Medications ?Medication ?Instructions ?Recorded ?Confirmed ?Type aspirin 81 mg tablet,delayed 81 mg PO DAILY 02/21/21 08/24/24 History release clobetasol 0.05 % topical ointment 1 applic topical NEEDED PRN 08/16/24 08/24/24 History itching finasteride 5 mg tablet 5 mg PO HS 08/16/24 08/24/24 History omeprazole 40 mg capsule,delayed 40 mg PO HS 08/16/24 08/24/24 History release tamsulosin 0.4 mg capsule 0.4 mg PO HS 08/16/24 08/24/24 History [id number] 2 cap PO AC 30 days #180 caps 08/17/24 08/24/24 Rx 36,000-114,000-180,000 unit capsule,delay rel (Creon) levofloxacin 750 mg tablet 750 mg PO DAILY 6 days #6 tabs 08/19/24 08/24/24 Rx oxybutynin chloride 5 mg tablet 5 mg PO BID PRN bladder spasms #10 08/19/24 08/24/24 Rx tabs New Prescriptions to Start Prescriptions: [id number] [Creon] Jim Rubin Allergies Allergy/AdvReac Type Severity Reaction Status Date / Time [id number] Reductase AdvReac Mild Joint Pain Verified 08/24/24 07:55 Inhibitor Discharge Plan Disposition Patient Disposition: Home, Self-Care Condition: Fair Discharge Order Discharge Orders: Discharge Order (Routine); Ordered 08/17/24 Ordered By: Jim Rubin Follow up Plan Follow up with: Luis Hadley II, MD [Staff Physician] - 08/19/24 (office to call patient) Jasper Kaplan MD [Primary Care Provider] - 08/24/24 10:00 am Prescriptions/Medication Reconciliation: New Creon 36,000-114,000- 180,000 unit Capsule,Delayed Release(Dr/Ec) 2 cap PO AC 30 Days Qty: 180 0RF Continued aspirin 81 MG tablet,delayed release (DR/EC) 81 mg PO DAILY clobetasol 0.05 % ointment 1 applic topical NEEDED PRN (Reason: itching) omeprazole 40 mg capsule,delayed release(DR/EC) 40 mg PO HS tamsulosin 0.4 mg capsule 0.4 mg PO HS finasteride 5 mg tablet 5 mg PO HS No Action levofloxacin 750 mg tablet 750 mg PO DAILY 6 Days Qty: 6 0RF oxybutynin chloride 5 mg tablet 5 mg PO BID PRN (Reason: bladder spasms) Qty: 10 0RF Problem Reconciliation Problems Reviewed?: Yes Patient Discharge Instructions Patient Instructions: Jaundice, DI for Endoscopic Retrograde Cholangiopancreatography Print Language: Citizen Of [place] Providers Primary Care Provider: Jasper Kaplan Admit Provider: Karlos Toussaint Attending Provider: Karlos Toussaint
--- NOTE | 2024-08-18 10:23 | SW/DCPLANNER ---
Spoke with patiet on the phone. Patient stated that his stomach is good where he had surgery. Patient stated that he went to the bathroom this morning and that when he peed it was blood. Suggested that patient needs to see his primary care provider and he said that he called and his primary care provider stated that he needs to be seen in the ER. Patient stated that he hasnt gotten his new medicine yet but is calling clinic pharmacy. Patient stated that he has no concern or questions at this time. Shefali Hart
== END 2024-08-17 16:33 | disposition home or self-care (01) | DRG 435 ==
LOC: ER 15:56 → 2ND 17:22
PROVIDERS: Internal Medicine Gastroenterology; Physician Assistant; Student in an Organized Health Care Education/Training Program; Admitting Provider Internal Medicine Adolescent Medicine; Emergency Provider Emergency Medicine; PCP Family Medicine; Visit Provider Internal Medicine Adolescent Medicine
PROC: 0FD98ZX Extraction of Common Bile Duct, Via Natural or Artificial Opening Endoscopic, Diagnostic (ICD-10-PCS; CPT 43260; principal; 2024-08-16 14:00)
DX: C25.0 Malignant neoplasm of head of pancreas (principal); K83.1 Obstruction of bile duct; R63.4 Abnormal weight loss; I10 Essential (primary) hypertension; N40.0 Benign prostatic hyperplasia without lower urinary tract symptoms; Z79.899 Other long term (current) drug therapy; E78.5 Hyperlipidemia, unspecified; Z68.25 Body mass index [BMI] 25.0-25.9, adult
CPT/HCPCS: 36415; 74177; 74183; 74330; 76000; 76376; 76705; 80053; 80061; 80074; 80320; 80329; 81001; 82378; 83036; 83605; 83690; 83735; 83880; 84145; 85025; 85610; 85730; 86301; 86318; 86803; 87389; 88112; 88307; 88341; 88342; 99291; J3490; A9576; C1874; C1889; J1100; J2405; J3010; Q9967

== ENCOUNTER 2024-08-19 21:37 | Emergency (ER) | payer MEDICARE, OTHER, SELFPAY ==
[2024-08-19 21:39] VITALS: BP 163/74; PULSE 70; RESP 18; TEMP 36.8; O2SAT 96; BMI 25.7
--- NOTE | 2024-08-19 22:23 | PC.NURSE ---
bladder scanned patient post void residual was 2ml. aware.
[2024-08-19 22:32] LABS: Microscopic, Urine URINE MICROSCOPIC (MICROSCOPIC)
[2024-08-19 22:37] LABS: Bilirubin,Urine Negative (Negative); Blood, Urine 3+ (Negative); Glucose,Urine (UA) Negative (Negative); Ketones,Urine Negative (Negative); Leukocyte Esterase,Urine 2+ (Negative); Nitrate,Urine POSITIVE (Negative); Protein,Urine 2+ (Negative)
[2024-08-19 22:41] LABS: Appearance,Urine Slightly Cloudy (Clear); Color,Urine Dark Yellow (Yellow)
[2024-08-19 22:48] LABS: Bacteria,Urine 1+ /lpf; RBC,Urine 20-50 #/hpf (0-3); Squamous Epithelial Cell,Urine Occasional #/hpf (0-5)
[2024-08-19] MEDS: PHENAZOPYRIDINE 200MG TABLET 200 MG PO (22:57)
[2024-08-19] MEDS: levoFLOXacin 750 MG TABLET PO (22:57)
[2024-08-19] MEDS: IBUPROFEN 400 MG TABLET 800 MG PO (22:58)
--- NOTE | 2024-08-19 23:18 | ED_ITS ---
Discharge Plan Disposition Patient Disposition: Home, Self-Care Condition: Good Prescriptions Prescriptions: New levofloxacin 750 mg tablet 750 mg PO DAILY 6 Days Qty: 6 0RF phenazopyridine [Pyridium] 200 mg tablet 200 mg PO Q8H PRN (Reason: pain) Qty: 6 0RF oxybutynin chloride 5 mg tablet 5 mg PO BID PRN (Reason: bladder spasms) Qty: 10 0RF No Action aspirin 81 MG tablet,delayed release (DR/EC) 81 mg PO DAILY clobetasol 0.05 % ointment 1 applic topical NEEDED PRN (Reason: itching) omeprazole 40 mg capsule,delayed release(DR/EC) 40 mg PO HS tamsulosin 0.4 mg capsule 0.4 mg PO HS finasteride 5 mg tablet 5 mg PO HS Creon 36,000-114,000- 180,000 unit Capsule,Delayed Release(Dr/Ec) 2 cap PO AC 30 Days Qty: 180 0RF Referrals Follow up/Referrals: Jasper Kaplan MD [Primary Care Provider] - See instructions Activity Restrictions/Add. Instructions Additional Instructions/Restrictions: You were evaluated in the emergency department today. 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 You may also take Tylenol and ibuprofen every 4-6 hours as needed for pain. Follow-up closely with your primary care provider. Make sure you stay hydrated. Return to the emergency department for new or worsening symptoms Clinical Impressions Clinical Impression: UTI (urinary tract infection) Instructions Patient Instructions: DI for Urinary Tract Infection (UTI), DI for Urinary Retention in Men Print Language Print Language: Lao Discharge ED Provider: Jessy Negron General Adult HPI General Chief complaint: Urogenital-Male Stated complaint: frequency,burning with urination Time Seen by Provider: 08/19/24 22:12 Mode of Arrival: Ambulatory Source of Information: Patient Limitations: No Limitations Description of Symptoms (Recalled from ER Triage Doc. by RN): Patient presents to ED with c/o of frequency, urgency, and bleeding in urine that started . Patient reports he had a procedure done on Thursday and was dx with pancreatic cancer. Patient had a catheter placed for the surgery and after they removed it has caused him problems every since. History of Present Illness HPI narrative: This patient is a 79-year-old male with a history of recently diagnosed pancreatic cancer causing obstructive jaundice presenting to the emergency d [facility] for evaluation with concern for dysuria, urinary frequency, urinary urgency. Patient states that this has been going on ever since he had his Jackson catheter placed while he was here in the hospital. He notes that initially after going home, he was passing lots of blood clots, however this is cleared up. Despite being able to urinate without issue and is no longer passing blood clots, he is having significant burning when he pees and frequency/urgency. No fevers or systemic symptoms. No other concerns noted at this time. Related Data Home Medications ?Medication ?Instructions ?Recorded ?Confirmed aspirin 81 mg tablet,delayed 81 mg PO DAILY 02/21/21 08/16/24 release clobetasol 0.05 % topical ointment 1 applic topical NEEDED PRN 08/16/24 08/16/24 itching finasteride 5 mg tablet 5 mg PO HS 08/16/24 08/16/24 omeprazole 40 mg capsule,delayed 40 mg PO HS 08/16/24 08/16/24 release tamsulosin 0.4 mg capsule 0.4 mg PO HS 08/16/24 08/16/24 Previous Rx's ?Medication ?Instructions ?Recorded [id number] 2 cap PO AC 30 days #180 caps 08/17/24 36,000-114,000-180,000 unit capsule,delay rel (Creon) levofloxacin 750 mg tablet 750 mg PO DAILY 6 days #6 tabs 08/19/24 oxybutynin chloride 5 mg tablet 5 mg PO BID PRN bladder spasms #10 08/19/24 tabs phenazopyridine 200 mg tablet 200 mg PO Q8H PRN pain 6 doses #6 08/19/24 (Pyridium) tabs Allergies Allergy/AdvReac Type Severity Reaction Status Date / Time [id number] Reductase AdvReac Mild Joint Pain Verified 08/04/24 15:00 Inhibitor [facility] Disclaimer: The information contained in this section may have been updated after the patient was seen, as this information can be updated by other users. 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 Mild persistent asthma Allergic rhinitis Dyspnea on exertion Diffusion capacity of lung (dl), decreased Asthma Restrictive lung disease Allergic rhinitis, unspecified Family history of asthma Smoking history Dyspnea on exertion CAD (coronary artery disease) HLD (hyperlipidemia) HTN (hypertension) Dyspnea Sinus bradycardia Abnormal stress ECG Surgical History H/O colonoscopy History of lumbar surgery History of bilateral inguinal hernia repair History of cholecystectomy History of surgery on arm Family History Mother Hypertension Cancer Father Hypertension Social History Smoking Status: Former smoker second hand exposure: No alcohol intake: never substance use type: denies use current occupational status: retired Travel in the last 8 weeks: None household members: spouse housing: house current occupational exposures/hazards: No caffeine: Yes Have you lived/traveled outside [place] in past 30 days?: No Contact w/someone who lives/traveled outside [place] past 30 days?: No Exposure to someone with infectious disease in past 14 days?: No Do you have a fever (greater than 100.4 F or 38 C)?: No Have you tested positive for COVID-19: No Exposed to someone with COVID-19 in past 14 days?: No Do you have a sore throat?: No Do you have a cough?: No Do you have any weakness?: No Do you have any diarrhea?: No Are you experiencing any unusual bleeding?: No Do you have any muscle aches/pain?: No Do you have any abdominal pain?: No Are you experiencing loss of taste or smell?: No Other Medical History Have you received the Flu Vaccine for this season: No Have you received the Pneumonia Vaccine: No ROS Obtained: Yes All systems reviewed & no additional complaints except as documented Physical Exam General General appearance: alert and in no apparent distress Head Head exam: atraumatic and normocephalic Eye Eye exam: Present normal appearance, PERRL and EOMI ENT ENT exam: Present normal exam, normal oropharynx, mucous membranes moist and normal external ear exam Neck Neck exam: Present normal inspection, full ROM and trachea midline; Absent tenderness Chest Chest inspection: Present normal inspection and symmetric chest wall rise; Absent tenderness Respiratory Respiratory exam: Present normal lung sounds bilaterally; Absent respiratory distress, wheezes, stridor or accessory muscle use Cardiovascular Cardiovascular exam: Present regular rate and normal rhythm Abdominal Exam Abdominal exam: Present soft; Absent distention, tenderness or guarding Extremities Exam Extremities exam: Present normal inspection, full ROM and normal capillary refill; Absent tenderness or edema Back Exam Back exam: Present normal inspection and full ROM; Absent tenderness Neurological Exam Neurological exam: Present alert, oriented X3, CN II-XII intact and normal gait; Absent motor sensory deficit Psychiatric Psychiatric exam: Present normal affect and normal mood Skin Skin exam: Present warm and dry Medical Decision Making Medical Records Medical records reviewed: Yes I reviewed the patient's medical records. Screening: Per USPSTF and CDC recommendations, given the prevalence of disease in our region, it is our hospital?s policy to screen for HIV and viral Hepatitis for all patients aged 18 and over and those with ongoing risk factors. [place] Inquiry Pt receiving controlled substance: No Vital Signs: 08/19/24 21:39 08/19/24 23:21 Temperature 98.2 F 97.9 F Temperature Source Oral Oral Pulse Rate 61 Pulse Rate [Right Brachial] 70 Respiratory Rate 18 18 Blood Pressure 148/76 H Blood Pressure [Right Arm] 163/74 H Blood Pressure Mean [Right Arm] 103 Blood Pressure Source [Right Arm] Automatic Cuff Blood Pressure Position [Right Arm] Supine 02 Sat by Pulse Oximetry 96 Oxygen Delivery Method Room Air Room Air Lab Data Lab results reviewed: Yes I reviewed the patient's lab results. Lab Results 08/19/24 22:03: Urine Color Dark yellow, Urine Appearance Slightly cloudy, Urine pH 6.0, Ur Specific [place] 1.020, Urine Protein 2+ A, Urine Glucose (UA) Negative, Urine Ketones Negative, Urine Blood 3+ A, Urine Nitrate Positive A, Urine Bilirubin Negative, Urine Urobilinogen 1.0, Ur Leukocyte Esterase 2+ A, Urine RBC 20-50, Urine WBC 10-20, Ur Squamous Epith Cells Occasional, Urine Bacteria 1+ Orders (Tests/Meds): ED MEDICATIONS Discontinued Medications Generic Name Dose Route Start Last Admin Trade Name Freq PRN Reason Stop Dose Admin Ibuprofen 800 mg 08/19/24 22:51 08/19/24 22:58 Ibuprofen 400 Mg Tablet PO 08/19/24 22:52 800 mg ONCE ONE Administration Levofloxacin 750 mg 08/19/24 22:51 08/19/24 22:57 Levofloxacin 750 Mg Tablet PO 08/19/24 22:52 750 mg ONCE ONE Administration Oxybutynin Chloride 5 mg 08/19/24 22:51 08/19/24 23:23 Oxybutynin 5mg Tab PO 08/19/24 22:52 5 mg ONCE ONE Administration Phenazopyridine HCl 200 mg 08/19/24 22:51 08/19/24 22:57 Phenazopyridine 200mg Tablet PO 08/19/24 22:52 200 mg ONCE ONE Administration ORDERS Category Date Time Status UA [Urinalysis and Microscopic] Stat Lab 08/19/24 22:03 Completed Urine Culture Stat Micro 08/19/24 22:23 Received Medical Decision Narrative: In summary, this patient is a 79-year-old male presenting to the Emergency Department for evaluation of dysuria. Differential diagnoses considered include but are not limited to urinary tract infection, obstructive uropathy, hemorrhagic cystitis, prostatitis. Ruling out the most morbid conditions drove assessment. It should be noted patient's history includes newly diagnosed pancreatic lesion, CAD, hypertension, hyperlipidemia which may or may not be at goal therapy. This complicates all aspects of care by increasing patient's risk for morbidity. I reviewed patient's past medical records and noted recent admission as detailed in HPI with ERCP noted 08/16/2024. On exam, the patient is lying in bed in no acute distress with benign abdominal exam. He has no significant urinary retention noted on postvoid residual, and urine looks clear with no large blood clots. Workup included urinalysis and urine culture in addition to the postvoid bladder scan. Urinalysis is concerning for infection with positive nitrites, white blood cells, red blood cells. Given this, we will plan to treat as complicated UTI with oral Levaquin. He is also given oral Pyridium, Ditropan, and ibuprofen for symptomatic improvement. Ultimately given he is stable, afebrile, nontoxic-appearing I feel he is appropriate for discharge home with prescriptions for the above to treat complicated urinary tract infection. Instructions for close follow-up were given as well as strict return precautions. Urine cultures pending at this time. Critical Care Critical Care Time Critical Care Time: No
[2024-08-19 23:21] VITALS: BP 148/76; PULSE 61; RESP 18; TEMP 36.6; O2SAT 97
[2024-08-19] MEDS: OXYBUTYNIN 5MG TAB 5 MG PO (23:23)
--- NOTE | 2024-08-21 09:39 | PC.NURSE ---
urine culture discussed with , pt dc with appropriate antibiotics, no new orders
--- NOTE | 2024-08-23 16:00 | PC.NURSE ---
ua results discussed with dr. sebastian, no new orders
== END 2024-08-19 23:26 | disposition home or self-care (01) ==
PROVIDERS: Emergency Provider Emergency Medicine; PCP Family Medicine
DX: N39.0 Urinary tract infection, site not specified (principal); R30.0 Dysuria; R35.0 Frequency of micturition; R39.15 Urgency of urination; R30.9 Painful micturition, unspecified; K83.1 Obstruction of bile duct; K86.89 Other specified diseases of pancreas
CPT/HCPCS: 81001; 87086; 87088; 87186; 99283

== ENCOUNTER 2024-08-31 10:26 | Outpatient (CLI) | payer MEDICARE, OTHER, SELFPAY | END 2024-08-31 23:59 | disposition home or self-care (01) | LOC: LAB.DROPOF 09-01 11:15 | PROVIDERS: PCP Nurse Practitioner Family; Visit Provider Nurse Practitioner Family | DX: R30.0 Dysuria (principal); N39.0 Urinary tract infection, site not specified; B96.20 Unspecified Escherichia coli [E. coli] as the cause of diseases classified elsewhere | CPT/HCPCS: 87086; 87088; 87186 ==

== ENCOUNTER 2024-09-16 10:24 | Outpatient (CLI) | payer MEDICARE, OTHER, SELFPAY | END 2024-09-16 23:59 | disposition home or self-care (01) | LOC: LAB.DROPOF 09-19 10:25 | PROVIDERS: PCP Family Medicine; Visit Provider Family Medicine | DX: N39.0 Urinary tract infection, site not specified (principal) | CPT/HCPCS: 87086; 87088; 87186 ==

== ENCOUNTER 2024-09-21 14:00 | Outpatient (CLI) | payer MEDICARE, OTHER, SELFPAY ==
[2024-09-21 16:54] LABS: Coronavirus 19, PCR Not Detected (NotDetected); Human Rhinovirus Not Detected (NotDetected); Influenza A, PCR Not Detected (NotDetected); Influenza B, PCR Not Detected (NotDetected); Respiratory Syncytial Virus Not Detected (NotDetected)
== END 2024-09-21 23:59 | disposition home or self-care (01) ==
LOC: LAB.DROPOF 09-22 14:31
PROVIDERS: PCP Family Medicine; Visit Provider Family Medicine
DX: R50.9 Fever, unspecified (principal)
CPT/HCPCS: 87631

== ENCOUNTER 2024-10-10 10:54 | Outpatient (CLI) | payer MEDICARE, OTHER, SELFPAY | END 2024-10-10 23:59 | disposition home or self-care (01) | LOC: LAB.DROPOF 10-12 11:48 | PROVIDERS: PCP Family Medicine; Visit Provider Family Medicine | DX: N39.0 Urinary tract infection, site not specified (principal) | CPT/HCPCS: 87086 ==